=== PATIENT | male | born 1945 | race Caucasian/White ===

== ENCOUNTER 2018-05-31 05:43 | Observation (INO) | payer MEDICARE, OTHER ==
--- NOTE | 2018-05-17 07:47 | HP ---
CC: Ana Phillip MD; Sae Mcqueen MD * ADMITTING HISTORY AND PHYSICAL: DATE OF ADMISSION: 05/31/18 ADMITTING DIAGNOSES: 1. Benign prostatic hypertrophy. 2. Patrial urinary retention. 3. Bladder calculi. PLANNED PROCEDURE: Transurethral resection of prostate and fragmentation and removal of bladder calculi. SURGEON: Zach Vinson MD. HISTORY OF PRESENT ILLNESS: Robel Padilla is a 72-year-old gentleman with a longstanding history of problems related to prostate enlargement. He has been on medical therapy for BPH in the form of Flomax, as well as Proscar, but in spite of that, has been noted to be in partial urinary retention with residuals of up to 300 cc and has had recurrent urinary tract infections. PAST MEDICAL HISTORY: Significant for: 1. Diabetes mellitus. 2. Remote history of coronary artery disease. 3. Hypertension. PAST SURGICAL HISTORY: Significant for: 1. 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 2. Right inguinal hernia repair. 3. Finger surgery. MEDICATIONS: On admission include: 1. Lisinopril 2.5 mg daily. 2. Victoza 1.8 mg daily. 3. Metoprolol 25 mg twice a day. 4. Pantoprazole 40 mg daily. 5. Finasteride 5 mg daily. 6. Crestor 20 mg daily. 7. Aspirin 81 mg. 8. Glipizide 10 mg twice a day. 9. Flomax 0.4 mg daily. 10. Metformin 500 mg twice a day. ALLERGIES: No known drug allergies. SOCIAL HISTORY: He is a nonsmoker. REVIEW OF SYSTEMS: He is quite active physically. He denies any chest pain or shortness of breath. PHYSICAL EXAMINATION GENERAL: Reveals a pleasant healthy-appearing gentleman. VITAL SIGNS: Blood pressure is 112/72, pulse 56 per minute and regular, temperature 96.7, oxygen saturation 97% on room air. LUNGS: Clear bilaterally. CARDIOVASCULAR: Regular rate and rhythm. S1, S2. ABDOMEN: Soft without masses. As mentioned above, he is status post a left below- knee amputation with a prosthesis in place. IMPRESSION AND PLAN: A 72-year-old gentleman with partial urinary retention and recurrent urinary tract infections, who has an enlarged prostrate and multiple bladder calculi. Planned procedure is transurethral resection of prostate and fragmentation and removal of bladder calculi. [id number]/[facility] #: [id number] [facility] PARTNERSMar[facility]
[~2018-05-31 05:43] MED LIST: Buffered Lidocaine 0.9% SYRIN* 5 ML/SYR SYRINGE INTRADERM ONE; Lactated Ringers 1000 ML Bag* 1,000 ML IV SCH
[2018-05-31] MEDS ORDERED: cefTRIAXone(*) 2 GM ADDV.VIAL IVPB ONE (06:19)
[2018-05-31] MEDS ORDERED: fentaNYL* 50 MCG/ML 2 ML VIAL (100 MCG VIAL) ONE (07:33)
[2018-05-31] MEDS ORDERED: Midazolam* 1 MG/ML 2 ML VIAL (2 MG) ONE (07:33)
[2018-05-31] MEDS ORDERED: Succinylcholine* 20 MG/ML 10 ML VIAL ONE (07:37)
[2018-05-31] MEDS ORDERED: Lidocaine 1% INJ* 10 MG/ML 30 ML SDV ONE (07:48)
[2018-05-31] MEDS ORDERED: Propofol* 10 MG/ML 20 ML BTL ONE (08:01)
[2018-05-31] MEDS ORDERED: Bupivacaine-MPF SPINAL* 7.5 MG/ML - 2ML AMP ONE (08:01)
[2018-05-31] MEDS ORDERED: Bupivacaine 0.25% W/EPI* 10 ML SDV ONE (08:01)
[2018-05-31] MEDS ORDERED: HYDROmorphone INJ1* 1 MG/ML SYRINGE IV PRN (08:35)
[2018-05-31] MEDS ORDERED: oxyCODONE/Acetamin 5/325 MG* TAB PO PRN (08:35)
[2018-05-31] MEDS ORDERED: Naloxone* 0.4 MG/ML 1 ML VIAL IV PRN (08:35)
[2018-05-31] MEDS ORDERED: Gentamicin ADULT (*) 160 MG in NS 0.9% 100 ML* 100 ML IVPB ONE (09:00)
[2018-05-31] MEDS ORDERED: Furosemide IV* 10 MG/ML 2 ML VIAL (20 MG) ONE (09:22)
[2018-05-31] MEDS ORDERED: Acetaminophen TAB* 325 MG PO PRN (09:38)
[2018-05-31] MEDS ORDERED: Dextrose 50% Syringe 50 ML* 25 GM/50 ML SYRINGE IV PUSH PRN (11:00)
[2018-05-31] MEDS: Lactated Ringers 1000 ML Bag* 1,000 ML IV SCH ×3 (11:00→23:48)
[2018-05-31] MEDS: Insulin LISPRO* 1 UNITS UNIT SUBCUT SCH ×3 (11:44→20:52)
[2018-05-31 11:47] LABS: BUN/Creatinine Ratio 13.1 (8-20); Calcium 9.2 mg/dL (8.6-10.3); EGFR Non-African American 74.3 (>60); Potassium 4.5 mmol/L (3.5-5.0)
--- NOTE | 2018-05-31 16:18 | OP ---
CC: Dr. Ana Phillip * DATE OF OPERATION: 05/31/18 - ROOM #350 DATE OF : 45 SURGEON: Zach Vinson M.D. ANESTHESIOLOGIST: Dr. White. ANESTHESIA: Spinal. PRE-OP DIAGNOSES: 1. Benign prostatic hypertrophy. 2. Partial urinary retention. 3. Bladder calculi. POST-OP DIAGNOSES: 1. Benign prostatic hypertrophy. 2. Partial urinary retention. 3. Bladder calculi. OPERATIVE PROCEDURE: 1. Transurethral resection of prostate. 2. Fragmentation and removal of bladder calculi. COMPLICATIONS: None. BLOOD LOSS: Approximately 100 cc. CATHETER: 24-Scottish, 30 cc Manley. POSTOPERATIVE CONDITION: Stable. INDICATIONS: Robel Padilla is a 72-year-old gentleman with a longstanding history of symptoms related to BPH, leading to partial urinary retention and recurrent infection in spite of being on maximal medical therapy. DESCRIPTION OF PROCEDURE: After induction of spinal anesthesia, the patient was placed in dorsal lithotomy position. He is status post left below-knee amputation, so only a right sequential compression device was used. Initial evaluation revealed a moderately enlarged obstructing vascular prostate and multiple small bladder calculi. The calculi were easily fragmented and irrigated out and did not require any laser procedure. Next, attention was directed to the prostate. A resectoscope was introduced and transurethral resection of the prostate was carried out from the bladder neck down to the veru. The floor of the prostate was resected, followed by the lateral lobe and then the anterior tissue. At no point was the resection carried distal to the veru in an effort to avoid any potential injury to the sphincter. The resected tissue was removed from the bladder using the Ge evacuator. Hemostasis appeared satisfactory at the end of the procedure. A 24- Scottish Manley catheter was introduced without difficulty and connected to a drainage bag. The patient tolerated the procedure satisfactorily and was transferred back to the recovery area in stable condition. [id number]/[facility] #: [id number] [facility]
[2018-05-31] MEDS ORDERED: Cholecalciferol TAB* 1000 UNITS PO SCH (18:00)
[2018-05-31] MEDS ORDERED: Atorvastatin* 40 MG TAB PO SCH (18:00)
[2018-05-31] MEDS: metFORMIN* 1,000 MG TAB PO SCH (20:40)
[2018-05-31] MEDS: glipiZIDE TAB* 5 MG PO SCH (20:41)
[2018-05-31] MEDS: Metoprolol Tartrate TAB* 25 MG PO SCH (20:41)
[2018-05-31] MEDS ORDERED: Pyridoxine TAB* 50 MG PO SCH (21:00)
[2018-06-01] MEDS: Lactated Ringers 1000 ML Bag* 1,000 ML IV SCH (06:36)
[2018-06-01] MEDS ORDERED: cefTRIAXone(*) 2 GM in NS 0.9% 100 ML* 100 ML IVPB ONE (08:00)
[2018-06-01 08:32] VITALS: BP 113/63
[2018-06-01] MEDS: Insulin LISPRO* 1 UNITS UNIT SUBCUT SCH (08:34)
[2018-06-01] MEDS: metFORMIN* 1,000 MG TAB PO SCH (08:39)
[2018-06-01] MEDS: glipiZIDE TAB* 5 MG PO SCH (08:39)
[2018-06-01] MEDS: Metoprolol Tartrate TAB* 25 MG PO SCH (08:39)
[2018-06-01] MEDS ORDERED: Omeprazole CAP* 20 MG PO SCH (09:00)
[2018-06-01] MEDS ORDERED: Liraglutide (NF) 18 MG/3 ML SUBCUT SCH (09:00)
[2018-06-01] MEDS ORDERED: Multivitamins/Minerals TAB PO SCH (09:00)
--- NOTE | 2018-06-02 04:07 | DS ---
DISCHARGE SUMMARY: DATE OF ADMISSION: 05/31/18 DATE OF DISCHARGE: 06/01/18 ADMITTING DIAGNOSES: 1. BPH. 2. Partial urinary retention. SURGICAL PROCEDURE DONE DURING THIS ADMISSION: Transurethral resection of prostate and fragmentation and removal of bladder calculi on 05/31/18. ADMITTING HISTORY AND HOSPITAL COURSE: Robel Padilla is a 72-year-old gentleman with longstanding history of voiding dysfunction secondary to prostate enlargement. For details, please see admitting history and physical. On 05/31/18, Mr. Padilla underwent transurethral resection of the prostate and removal of bladder calculi under spinal anesthesia. Surgery was smooth and uneventful. He was monitored overnight and was evaluated on 06/01/18 a.m. The Manley catheter was draining reasonably clear urine with good output and he was discharged home with the Manley in place for a followup as per outpatient protocol. [id number]/[facility] #: [id number] MTDD
== END 2018-06-01 10:05 | disposition home or self-care (01) ==
LOC: OR 05:43 → SSU 09:38
PROVIDERS: ADMIT Urology; ATTEND Urology
DX: N40.0 Benign prostatic hyperplasia without lower urinary tract symptoms (principal); R33.9 Retention of urine, unspecified; K80.50 Calculus of bile duct without cholangitis or cholecystitis without obstruction; E11.9 Type 2 diabetes mellitus without complications; I25.10 Atherosclerotic heart disease of native coronary artery without angina pectoris; I10 Essential (primary) hypertension; Z89.512 Acquired absence of left leg below knee; Z79.82 Long term (current) use of aspirin
CPT/HCPCS: 36415; 80048; 88305; 96365; 96366; 96375; A9270-GY; G0378; J0330; J0696; J1580; J1940; J2250; J2704; J3010

== ENCOUNTER 2018-12-25 06:37 | Day surgery (SDC) | payer MEDICARE ==
[~2018-12-25 06:37] MED LIST changes: +Acetaminophen TAB* 325 MG PO PRN; -Buffered Lidocaine 0.9% SYRIN* 5 ML/SYR SYRINGE INTRADERM ONE; -Lactated Ringers 1000 ML Bag* 1,000 ML IV SCH
[2018-12-25] MEDS ORDERED: Metoprolol Tartrate TAB* 25 MG ONE (08:07)
[2018-12-25] MEDS ORDERED: Midazolam* 1 MG/ML 2 ML VIAL (2 MG) ONE (08:10)
[2018-12-25] MEDS ORDERED: Lidocaine 1% MPF ** 5 ML VIAL ONE (09:01)
[2018-12-25] MEDS ORDERED: Ketorolac 0.5% OPHTH (NF) 0.5 % 5 ML BTL ONE (09:01)
[2018-12-25] MEDS ORDERED: Neomycin/Polymy/Dex OPHTH.OIN* 3.5 GM ONE (09:01)
[2018-12-25] MEDS ORDERED: acetaZOLAMIDE TAB* 250 MG ONE (09:01)
[2018-12-25] MEDS ORDERED: Cyclopentolate 1% OPTH.SOL* 2 ML BTL ONE (09:01)
[2018-12-25] MEDS ORDERED: Phenylephrine OPHTH SOL 2.5%* 2 ML ONE (09:01)
[2018-12-25] MEDS ORDERED: Povidone Iodine 5% OPTH* 30 ML BTL ONE (09:01)
[2018-12-25] MEDS ORDERED: Tetracaine 0.5% OPTH.SOL 4 ML* 1 DROP BTL ONE (09:01)
[2018-12-25] MEDS ORDERED: Tropicamide 1% OPTH.SOL* BTL ONE (09:01)
--- NOTE | 2018-12-25 09:48 | OP ---
OPERATIVE REPORT: DATE OF OPERATION: 12/25/18 DATE OF : 45 SURGEON: Louis Pham MD ANESTHESIA: Monitored anesthesia care. PRE-OP DIAGNOSIS: Cataract, right eye. POST-OP DIAGNOSIS: Cataract, right eye, with floppy iris syndrome. OPERATIVE PROCEDURE: Extracapsular cataract extraction of the right eye with intraocular lens implan t. IMPLANTS: SN60WF 22.0 diopter lens to the right eye. COMPLICATIONS: None. DESCRIPTION OF PROCEDURE: The patient was given phenylephrine 2.5% and cyclopentolate 1% eye drops t o the operative eye in the preoperative area. The patient was taken to the operating room where a ti me-out was taken to identify the correct patient, site, and side of surgery. The patient's right eye was prepped and draped in the usual sterile fashion with 5% Betadine. A second time-out was taken t o verify the correct patient, side, and site of surgery, and correct lens implant. A lid speculum wa s placed to the right eye. A 1 mm paracentesis blade was used to make a clear corneal incision in th e superotemporal position. Preservative-free 1% lidocaine was injected into the anterior chamber. Di sCoVisc was then injected into the anterior chamber. A 2.75 mm keratome blade was used to make a tri planar incision at the inferotemporal position. A Malyugin ring was then inserted due to poor pupil dilation and signs of floppy iris syndrome. A cystotome initiated a capsulorrhexis, which was comple luis with Utrata forceps in continuous and curvilinear manner. Hydrodissection of the lens was perfor med with BSS on a cannula. The lens could be spun in a capsular bag. The phacoemulsification handpi aundrea was used with a vizsrhi-yex-nxcbntg technique to remove the nucleus. The I/A handpiece then yu viky the residual cortical lens material. DisCoVisc was then injected to inflate the capsular bag. T he planned SN60WF 22.0 diopter lens was then injected into the capsular bag. The Malyugin ring was t hen removed from the anterior chamber. The residual DisCoVisc was removed from the eye with the I/A handpiece. The corneal incisions were hydrated and no leaks occurred at physiologic pressure around 20 mmHg per palpation. The lid speculum was removed and drapes removed. Maxitrol ointment was place d to the surface of the operative eye. An adhesive patch and shield was then placed on the operative eye. The patient was taken to the postoperative area in stable condition. [id number]/[facility] #: [id number]
[2018-12-25 09:53] VITALS: BP 112/60
== END 2018-12-25 09:05 | disposition home or self-care (01) ==
LOC: OREAST 06:37
PROVIDERS: ATTEND Student in an Organized Health Care Education/Training Program
DX: H25.11 Age-related nuclear cataract, right eye (principal); H21.81 Floppy iris syndrome; E11.9 Type 2 diabetes mellitus without complications; Z79.84 Long term (current) use of oral hypoglycemic drugs; E78.00 Pure hypercholesterolemia, unspecified; K21.9 Gastro-esophageal reflux disease without esophagitis; M19.90 Unspecified osteoarthritis, unspecified site; I10 Essential (primary) hypertension
CPT/HCPCS: A9270-GY; J2250; V2632

== ENCOUNTER 2019-01-01 07:02 | Day surgery (SDC) | payer MEDICARE ==
[2019-01-01] MEDS ORDERED: Midazolam* 1 MG/ML 5 ML VIAL (5 MG) ONE (08:15)
[2019-01-01] MEDS ORDERED: Tropicamide 1% OPTH.SOL* BTL ONE (09:13)
[2019-01-01] MEDS ORDERED: Povidone Iodine 5% OPTH* 30 ML BTL ONE (09:13)
[2019-01-01] MEDS ORDERED: Ketorolac 0.5% OPHTH (NF) 0.5 % 5 ML BTL ONE (09:13)
[2019-01-01] MEDS ORDERED: Lidocaine 1% MPF ** 5 ML VIAL ONE (09:13)
[2019-01-01] MEDS ORDERED: Neomycin/Polymy/Dex OPHTH.OIN* 3.5 GM ONE (09:13)
[2019-01-01] MEDS ORDERED: acetaZOLAMIDE TAB* 250 MG ONE (09:13)
[2019-01-01] MEDS ORDERED: Tetracaine 0.5% OPTH.SOL 4 ML* 1 DROP BTL ONE (09:13)
[2019-01-01] MEDS ORDERED: Cyclopentolate 1% OPTH.SOL* 2 ML BTL ONE (09:13)
[2019-01-01] MEDS ORDERED: Phenylephrine OPHTH SOL 2.5%* 2 ML ONE (09:13)
[2019-01-01 09:43] VITALS: BP 109/62
--- NOTE | 2019-01-01 11:04 | OP ---
DATE OF OPERATION: 01/01/19 - [facility] DATE OF : 45 SURGEON: Lousi Pham MD. ANESTHESIA: Monitored anesthesia care. PREOPERATIVE DIAGNOSIS: Cataract, left eye. POSTOPERATIVE DIAGNOSIS: Cataract, left eye, with floppy iris syndrome. OPERATIVE PROCEDURE: Extracapsular cataract extraction of the left eye with intraocular lens implant. IMPLANTS: SN60WF 21.5 diopter lens to the left eye. COMPLICATIONS: None. DESCRIPTION OF PROCEDURE: The patient was given phenylephrine 2.5% and cyclopentolate 1% eye drops to the operative eye in the preoperative area. The patient was taken to the operating room where a time-out was taken to identify the correct patient, site, and side of surgery. The patient's left eye was prepped and draped in usual sterile fashion with 5% Betadine. A second time- out was taken to verify the correct patient, side and site of surgery, and correct lens implant. A lid speculum was placed to the left eye. A 1-mm paracentesis blade was used to make a clear corneal incision in the inferotemporal position. Preservative-free 1% lidocaine was injected into the anterior chamber. DisCoVisc was then injected into the anterior chamber. A 2.75 mm keratome blade was used to make a triplanar incision at the superotemporal position. A Malyugin ring was then inserted due to poor pupil dilation and evidence of floppy iris syndrome. A cystotome was initiated a capsulorrhexis, which was completed with Utrata forceps in a continuous and curvilinear manner. Hydrodissection of the lens was performed with BSS on a cannula. The lens could be spun in the capsular bag. The phacoemulsification handpiece was used with a vmhwap-wvv-ixdceyk technique to remove the nucleus. The IA handpiece then removed the residual cortical lens material. DisCoVisc was injected to inflate the capsular bag. The planned SN60WF 21.5 diopter lens was then injected in the capsular bag. The Malyugin ring was then removed from the anterior chamber. The residual DisCoVisc was removed from the eye with the IA handpiece. The corneal incisions were hydrated and no leaks occurred at physiologic pressure around 20 mmHg per palpation. The lid speculum was removed and drapes removed. Maxitrol ointment was placed to the surface of the operative eye. An adhesive patch and shield was then placed on the operative eye. The patient was taken to the post-operative area in stable condition. [id number]/[facility] #: [id number] JEFFREY
== END 2019-01-01 09:32 | disposition home or self-care (01) ==
LOC: OREAST 07:02
PROVIDERS: ATTEND Student in an Organized Health Care Education/Training Program
DX: H25.12 Age-related nuclear cataract, left eye (principal); H21.81 Floppy iris syndrome; E11.9 Type 2 diabetes mellitus without complications; Z79.84 Long term (current) use of oral hypoglycemic drugs; I10 Essential (primary) hypertension; K21.9 Gastro-esophageal reflux disease without esophagitis; M19.90 Unspecified osteoarthritis, unspecified site; E78.00 Pure hypercholesterolemia, unspecified; I25.10 Atherosclerotic heart disease of native coronary artery without angina pectoris
CPT/HCPCS: A9270-GY; J2250; V2632

== ENCOUNTER 2019-06-03 07:47 | Inpatient (IN) | payer MEDICARE ==
--- OUTSIDE RECORDS SUMMARY | 2019-06-03 07:56 | XMS REPORT | Continuity of Care Document ---
:1945 External Reference #:[id number] Author Name Concepcion Collier RN MS FNP Address [address] [place] [address] Care Team Providers Name Role Phone Leo Montesinos MD - Urology Care Team Information Sighter [phone] Jacky Albarado MD Care Team Information Sighter [phone] Problems Active Problems Provider Date Type 2 diabetes mellitus Ana Phillip MD Onset: 04/27/2005 Benign essential hypertension Ana Phillip MD Onset: 06/29/2005 Coronary arteriosclerosis Ana Phillip MD Onset: 06/29/2005 Pure hypercholesterolemia Ana Phillip MD Onset: 05/31/2006 Peptic reflux disease Onset: 09/05/2006 Type II diabetes mellitus uncontrolled Ana Phillip MD Onset: 2012 Essential hypertension Ana Phillip MD Onset: 04/01/2017 Mixed hyperlipidemia Ana Phillip MD Onset: 07/04/2017 Social History Type Date Description Comments Sex Unknown Tobacco Use Start: Unknown Never Smoked Cigarettes Tobacco Use Start: Unknown Patient has never smoked Smoking Status Reviewed: 06/01/19 Patient has never smoked Allergies, Adverse Reactions, Alerts Description No Known Drug Allergies Medications Active Medications SIG Qnty Indications Ordering Date Provider Amoxicillin/Clavulana one tab twice a 14tabs L03.114 Concepcion Collier 06/01 te Potassium day x 7 days 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 875-125mg Tablets Jardiance 1 by mouth every 30tabs E11.65 Ana Phillip 04/10/2019 25mg Tablets day MD Mona Metformin HCL Take 2 Tablets 360tabs E11.65 Mele Cain PA 03/10/2018 500mg By Mouth Two Tablets Times Daily With Meals Carpal Tunnel Wrist LEFT 1units G56.02 [facility] 10/10/2017 Stabilizer/Large/X-La MD Mona rge Misc Vitamin D 1 by mouth every 90tabs E55.9 [facility] 07/04/2017 1000Unit day MD Mona Tablets Rosuvastatin Calcium Take 1 Tablet By 90tabs E78.2 [facility] 2016 Mouth Every Day MD Mona 20mg Tablets Acarbose Take 1 Tablet By 270tabs E11.65 [facility] 04/01/2017 50mg Tablets Mouth Three M, Times Daily Glipizide take 1 tablet by 180tabs E11.65 [facility] 04/01/2017 10mg Tablets mouth twice M, daily Metoprolol Tartrate Take 1 Tablet By 180tabs I25.10 [facility] 04/01 Mouth Two Times MD Mona 25mg Tablets Daily Glucosamine [facility] 04/01/2017 Chondroitin Complex MD Mona Advanced Plus MSM Tablets Cinnamon E11.65 [facility] 04/01/2017 500mg Tablets MD Mona Aspirin 1 po qd 90tabs I25.10 [facility] 10/12/[address] Mona MD BD Pen Needle Short Use Up To Three 100units E11.65 [facility] 09/11 31GX5/16" (8mm) Times A Day MD Mona Pantoprazole Sodium Take 1 Tablet By 90tabs K21.0 [facility] 2011 Mouth Every Day MD Mona 40mg Tablets DR Pacheco Inject 1.8 MG 27units E11.65 [facility] 11/02/2011 18mg/3ML Under The Skin MD Mona Solution Pen-Inject Every Day as Directed Lisinopril Take 1 Tablet By 90tabs I10 [facility] 05/10/2011 2.5mg Mouth Every Day MD Mona Tablets Diabetic Test Strips and prn symptoms QS E11.65 [facility] 2010 For bid Glucose of MD Mona Testing hypo/hyperglycem ia [place]-3 2 po bid 120caps E78.2 [facility] 12/09/2008 1000mg Capsules MD Mona epa/d[facility] MD Mona Tablets Immunizations CPT Code Status Date Vaccine Lot # [id number] Given 04/03/2019 Influenza Vac, Quadrivalent, Split, 0.5mL [id number] Dosage, Im Use 85517 Given 03/10/2018 Influenza Vac, Quadrivalent, Split, 0.5mL [id number] Dosage, [place] Use 19742 Given 12/26/2017 Shingrix (Shingles) Zoster Vaccine HZV, Recombinant, Subunit, Adj 07029 Given 10/11/2017 Shingrix (Shingles) Zoster Vaccine HZV, Recombinant, Subunit, Adj 75234 Given 02/23/2017 Influenza Vac, Quadrivalent, Split, 0.5mL Dosage, Im Use 05610 Given 02/08/2017 Influenza Vac, Quadrivalent, Split, 0.5mL Dosage, Im Use 49187 Given 11/15/2014 Prevnar 13 Pneumococal Conjugate Vaccine [id number] Q2038 Given 03/19/2014 Fluzone Trivalent Immunization [id number] Q2038 Given 05/07/2013 Fluzone Trivalent Immunization [id number] Q2038 Given 03/06/2012 Fluzone Trivalent Immunization [id number] 28360 Given 02/08/2012 Tdap (Adacel) Ages 7 And Above Only [id number] Q2038 Given 03/25/2011 Fluzone Trivalent Immunization [id number] 59713 Given 01/05/2011 Pneumococcal 23 Immunization Adult Or [id number] Immunosuppressed Patient 89552 Given 03/23/2010 Afluria Or Fluvirin Flu Vac Intramuscular [id number] 55974 Given 06/24/2009 Influenza Virus Vaccine Pandemic [id number] Formulation - [id number] 03091 Given 06/24/2009 Administration Swine Flu Vaccine [id number] 42859 Given 03/10/2009 Afluria Or Fluvirin Flu Vac Intramuscular [id number] 02226 Given 05/20/2008 Afluria Or Fluvirin Flu Vac Intramuscular [id number] 20666 Given 04/10/2007 Afluria Or Fluvirin Flu Vac Intramuscular [id number] 54593 Given 12/05/2006 Zoster (Zostavax) [id number] 61324 Given 05/31/2006 Afluria Or Fluvirin Flu Vac Intramuscular [id number] 39118 Given 04/27/2005 Afluria Or Fluvirin Flu Vac Intramuscular [id number]-7/ 30/06 70347 Given 06/30/2004 Afluria Or Fluvirin Flu Vac Intramuscular 52580 Given 03/29/2002 Immunization Td 7 Yrs Or Older 37385 Given 03/29/2002 Afluria Or Fluvirin Flu Vac Intramuscular 75497 Given 07/04/2000 Pneumococcal 23 Immunization Adult Or Immunosuppressed Patient Vital Signs Date Vital Result Comment 06/01/2019 10:07am Weight 199.25 lb Heart Rate 112 /min BP Systolic 144 mmHg BP Diastolic 82 mmHg 04/10/2019 7:55am Weight 207.00 lb Heart Rate 72 /min BP Systolic 104 mmHg BP Diastolic 60 mmHg Results Test Acquired Date Facility Test Result H/L Range Note Laboratory test 05/24/2019 [facility] PSA Diagnostic 0.721 Normal 0-4.0 1 finding ng/mL Basic (BMP) 04/03/2019 [facility] Sodium 140 mmol/L 135-146 2, 3 Potassium 4.6 mmol/L 3.5-5.2 Chloride# 103 mmol/L 97-110 4 Carbon Dioxide 27 mmol/L 24-34 Glucose 131 mg/dL High 70-105 BUN 18 mg/dL 6-26 Creatinine 1.2 mg/dL 0.5-1.4 Calcium 9.7 mg/dL 8.5-10.5 5 Female Egfr 46 Low >60 6 Male Egfr 61 >60 7 Anion Gap 10 mmol/L 5-15 8 Hemoglobin A1c 04/03/2019 [facility] Hemoglobin A1c 7.6 % High 4.1-5.9 Estimated Average Glucose Calc 171 mg/dL High 71-140 Lipid Treatment 04/03/2019 [facility] Cholesterol 109 mg/dL 50-199 Triglycerides 163 mg/dL 30-200 HDL 38 mg/dL 29-71 9 Chol/ HDL Ratio 2.8 ratio Low 4.0-6.7 VLDL 33 mg/dL High 2-29 LDL (Calc) 38 mg/dL 20-99 10 Alt 16 U/L 3-42 Ast 18 U/L 8-42 Laboratory test finding 04/03/2019 [facility] Vitamin D 25 Hydroxy 53 ng/mL 30-100 11 1 Serum levels of PSA measured using the [employer] [place] DXI Hybritech immunoassay should not be interpreted as absolute evidence of the presence or absence of disease. The PSA value should be used in conjunction with other pertinent clinical diagnostic procedures. The values obtained with different assay methods or kits cannot be used interchangeably. 2 This sample is drawn by:[facility]. 3 Updated reference range on new analyzer 4 Updated reference range on new analyzer 5 Updated reference range 10-11-2018 6 Concerning GFR Guidelines for Americans: Normal function or mild renal disease, if clinically at risk: >/= 60 mL/min Moderately decreased: 30-59 Severely decreased: 15-29 Renal failure: <15 There is reduced accuracy above 60ml/min/1.73 m squared, but the numeric value may be clinically useful in the near 60 range 7 Concerning GFR Guidelines: Normal function or mild renal disease, if clinically at risk: >/= 60 mL/min Moderately decreased: 30-59 Severely decreased: 15-29 Renal failure: <15 There is reduced accuracy above 60ml/min/1.73 m squared, but the numeric value may be clinically useful in the near 60 range Glomerular Filtration Rate (GFR) is estimated based on the CKD-EPI equation, which assumes a steady state for creatinine as recommended by the National Kidney Disease Education Program in conjunction with the National Institutes of Health and the National Kidney Foundation. Clinical conditions in which it may be necessary to measure GFR by using clearance methods include extremes of age and body size, severe malnutrition or obesity, diseases of skeletal muscle, paraplegia or quadriplegia, vegetarian diet, rapidly changing kidney function, and calculation of the dose of potentially toxic drugs that are excreted by the kidneys. 8 Updated Reference Range 9 Per NCEP ATP III Guidelines: Results lower than 40 mg/dL are suggestive of increased risk for coronary artery disease. Results > or = to 60 mg/dL are considered a negative risk factor. 10 Per NCEP ATP III Guidelines: Normal Population <130 Patients with medical conditions: CHD/DM Optimal: <100 Borderline high: 130-159 High: 160-189 Very high: >189 11 Clinical Guidelines for recommended serum 25(OH)Vitamin D Deficient at less than 20 ng/mL Insufficient at 20 to <30 ng/mL Sufficient at 30-100 ng/mL Toxicity at greater than 100 ng/mL Procedures Date Code Description Status 11/03/2017 35000373 Colonoscopy Completed 10/15/2014 [id number] Colonoscopy Completed 08/19/2004 [id number] Colonoscopy Completed Medical Devices Description No Information Available Encounters Type Date Location Provider Dx Diagnosis Office Visit 04/10/2019 Ana Dale E11.65 Type 2 diabetes 8:00a MD Mona mellitus with hyperglycemia E78.2 Mixed hyperlipidemia I10 Essential (primary) hypertension I25.10 [facility] heart disease of tel[place] coronary artery w/o ang pctrs N40.0 Benign prostatic hyperplasia without lower urinry tract symp G56.02 Carpal tunnel syndrome, LEFT upper limb Office Visit 12/18/2018 3:00p Ana Dale Z01.818 Encounter for juan francisco Dunn MD preprocedural examination Z68.27 Body mass index (BMI) 27.0-27.9, adult Office Visit 12/04/2018 9:45a Ana Dale E11.65 Type 2 diabetes MD Mona mellitus with hyperglycemia E78.2 Mixed hyperlipidemia I10 Essential (primary) hypertension I25.10 Athscl heart disease of tel[place] coronary artery w/o ang pctrs N40.0 Benign prostatic hyperplasia without lower urinry tract symp Z68.28 Body mass index (BMI) 28.0-28.9, adult Assessments Date Code Description Provider 06/01/2019 L03.114 Cellulitis of LEFT upper limb Concepcion Collier, RN MS [employer] SOFTWARE [employer]INE[employer] 06/01/2019 E11.65 Type 2 diabetes mellitus with Concepcion Collier RN MS [facility] hyperglycemia 04/10/2019 E11.65 Type 2 diabetes mellitus with Ana Phillip MD hyperglycemia 04/10/2019 E78.2 Mixed hyperlipidemia Ana Phillip MD 04/10/2019 I10 Essential (primary) hypertension Ana Phillip MD 04/10/2019 I25.10 Atherosclerotic heart disease of Ana Phillip MD tel[place] coronary artery with 04/10/2019 N40.0 Benign prostatic hyperplasia without Ana Phillip MD lower urinary tract sym 04/10/2019 G56.02 Carpal tunnel syndrome, LEFT upper Ana Phillip MD limb 04/03/2019 Z79.84 residential (current) use of oral [facility] hypoglycemic drugs 04/03/2019 E11.65 Type 2 diabetes mellitus with Ana Phillip MD hyperglycemia 04/03/2019 E11.65 Type 2 diabetes mellitus with [facility] hyperglycemia 04/03/2019 E11.65 Type 2 diabetes mellitus with Nurses [facility] hyperglycemia 04/03/2019 Z23 Encounter for immunization Ana Phillip MD 12/18/2018 Z01.818 Encounter for other preprocedural Ana Phillip MD examination 12/18/2018 Z68.27 Body mass index (BMI) 27.0-27.9, Ana Phillip MD adult 12/04/2018 E11.65 Type 2 diabetes mellitus with Ana Phillip MD hyperglycemia 12/04/2018 E78.2 Mixed hyperlipidemia Ana Phillip MD 12/04/2018 I10 Essential (primary) hypertension Ana Phillip MD 12/04/2018 I25.10 Atherosclerotic heart disease of Ana Phillip MD [place] coronary artery with 12/04/2018 N40.0 Benign prostatic hyperplasia without Ana Phillip MD lower urinary tract sym 12/04/2018 Z68.28 Body mass index (BMI) 28.0-28.9, Ana Phillip MD adult Plan of Treatment Future Appointment(s):06/04/2019 11:30 am - Ana Phillip MD at [id number] 8:30 am - Nurses Schedule Claude at [facility]/15/2019 9:00 am - Ana Phillip MD at [facility]/01/2019 - Concepcion Collier RN MS FNPL03.114 Cellulitis of LEFT upper limbNew Medication:Amoxicillin/Clavulanate Potassium 875-125 mg - one tab twice a day x 7 daysMiscellaneous:ADVISED TO USE ANTIBACTERIAL SOAP AND GENTLY WASH DAILY , RINCE AND PAT DRY, MAY USE SOME ANTIBIOTICOINTMENT OVER THE RED AREA AND MUST KEEP ELEVATED OVER HIS HEAD MUST GO TO ER FOR ANY WORSEING OF REDNESS OR IF FEELING WORSE ( FEVER CHILLS WORSE) MAY TAKE TYLENOL FOR FEVER OR PAINE11.65 Type 2 diabetes mellitus with hyperglycemia Functional Status Description No Information Available Mental Status Description No Information Available Referrals Description No Information Available
--- OUTSIDE RECORDS SUMMARY | 2019-06-03 07:56 | XMS REPORT | Continuity of Care Document ---
:1945 External Reference #:[id number] Author Name Ana Phillip MD Address [address] [place] [address] Care Team Providers Name Role Phone Leo Montesinos MD - Urology Care Team Information Asbestos Pipe Supervisor [phone] Sae Mcqueen MD Care Team Information Asbestos Pipe Supervisor [phone] Problems Active Problems Provider Date Type 2 diabetes mellitus Ana Phillip MD Onset: 04/27/2005 Benign essential hypertension Ana Phillip MD Onset: 06/29/2005 Coronary arteriosclerosis Ana Phillip MD Onset: 06/29/2005 Pure hypercholesterolemia Ana Phillip MD Onset: 05/31/2006 Peptic reflux disease Onset: 09/05/2006 Type II diabetes mellitus uncontrolled Ana Phillip MD Onset: 2012 Mixed hyperlipidemia Ana Phillip MD Onset: 07/04/2017 Essential hypertension Ana Phillip MD Onset: 04/01/2017 Social History Type Date Description Comments Sex Unknown Tobacco Use Start: Unknown Never Smoked Cigarettes Tobacco Use Start: Unknown Patient has never smoked Smoking Status Reviewed: 04/10/19 Patient has never smoked Allergies, Adverse Reactions, Alerts Description No Known Drug Allergies Medications Active Medications SIG Qnty Indications Ordering Date Provider Jardiance 1 by mouth every 30tabs E11.65 Ana Phillip 04/10/2019 25mg Tablets day MD Mona Metformin HCL Take 2 Tablets 360tabs E11.65 Mele Cain PA 03/10/2018 500mg By Mouth Two Tablets Times Daily With Meals Carpal Tunnel Wrist LEFT 1units G56.02 Ana Phillip 10/10/2017 Stabilizer/Large/Jack Dunn MD rge Misc Vitamin D 1 by mouth every 90tabs E55.9 [facility] 07/04/2017 1000Unit day MD Mona Tablets Rosuvastatin Calcium Take 1 Tablet By 90tabs E78.2 [facility] 2016 Mouth Every Day MD Mona 20mg Tablets Acarbose Take 1 Tablet By 270tabs E11.65 [facility] 04/01/2017 50mg Tablets Mouth Three M, Times Daily Glipizide Take 1 Tablet By 180tabs E11.65 [facility] 04/01/2017 10mg Tablets Mouth Twice M, Daily Metoprolol Tartrate Take 1 Tablet By 180tabs I25.10 [facility] 04/01 Mouth Two Times Mona, 25mg Tablets Daily Glucosamine [facility] 04/01/2017 Chondroitin Complex MD Mona Advanced Plus MSM Tablets Cinnamon E11.65 [facility] 04/01/2017 500mg Tablets MD Mona Aspirin 1 po qd 90tabs I25.10 [facility] 10/12/[address] Mona MD BD Pen Needle Short Use Up To Three 100units E11.65 [facility] 09/11 31GX5/16" (8mm) Times A Day MD Mona Pantoprazole Sodium Take 1 Tablet By 90tabs K21.0 [facility] 2011 Mouth Every Day MD Mona 40mg Tablets DR Pacheco Inject 1.8 MG 27units E11.65 [facility] 11/02/2011 18mg/3ML Under The Skin MD Mona Solution Pen-Inject Every Day as Directed Lisinopril Take 1 Tablet By 90tabs I10 [facility] 05/10/2011 2.5mg Mouth Every Day MD Mona Tablets Diabetic Test Strips and prn symptoms QS E11.65 [facility] 2010 For bid Glucose of MD Mona Testing hypo/hyperglycem ia Carlin-3 2 po bid 120caps E78.2 [facility] 12/09/2008 1000mg Capsules MD Mona epa/dha Vitamins Multiple [facility] 09/29/2004 MD Mona Tablets Immunizations CPT Code Status Date Vaccine Lot # [id number] Given 04/03/2019 Influenza Vac, Quadrivalent, Split, 0.5mL [id number] Dosage, Im Use 78485 Given 03/10/2018 Influenza Vac, Quadrivalent, Split, 0.5mL [id number] Dosage, Im Use 62461 Given 12/26/2017 Shingrix (Shingles) Zoster Vaccine HZV, Recombinant, Subunit, Adj 25155 Given 10/11/2017 Shingrix (Shingles) Zoster Vaccine HZV, Recombinant, Subunit, Adj 99274 Given 02/23/2017 Influenza Vac, Quadrivalent, Split, 0.5mL Dosage, Im Use 23182 Given 02/08/2017 Influenza Vac, Quadrivalent, Split, 0.5mL Dosage, Im Use 38742 Given 11/15/2014 Prevnar 13 Pneumococal Conjugate Vaccine [id number] Q2038 Given 03/19/2014 Fluzone Trivalent Immunization [id number] Q2038 Given 05/07/2013 Fluzone Trivalent Immunization [id number] Q2038 Given 03/06/2012 Fluzone Trivalent Immunization [id number] 00137 Given 02/08/2012 Tdap (Adacel) Ages 7 And Above Only [id number] Q2038 Given 03/25/2011 Fluzone Trivalent Immunization [id number] 30771 Given 01/05/2011 Pneumococcal 23 Immunization Adult [place] [id number] Immunosuppressed Patient 91436 Given 03/23/2010 Afluria Or Fluvirin Flu Vac Intramuscular [id number] 88619 Given 06/24/2009 Influenza Virus Vaccine Pandemic [id number] Formulation - [id number] 55939 Given 06/24/2009 Administration Swine Flu Vaccine [id number] 89566 Given 03/10/2009 Afluria Or Fluvirin Flu Vac Intramuscular [id number] 89523 Given 05/20/2008 Afluria Or Fluvirin Flu Vac Intramuscular [id number] 99547 Given 04/10/2007 Afluria Or Fluvirin Flu Vac Intramuscular [id number] 35009 Given 12/05/2006 Zoster (Zostavax) [id number] 28487 Given 05/31/2006 Afluria Or Fluvirin Flu Vac Intramuscular [id number] 57425 Given 04/27/2005 Afluria Or Fluvirin Flu Vac Intramuscular [id number]/ 30/06 95204 Given 06/30/2004 Afluria Or Fluvirin Flu Vac Intramuscular 31578 Given 03/29/2002 Immunization Td 7 Yrs Or Older 30972 Given 03/29/2002 Afluria Or Fluvirin Flu Vac Intramuscular 40008 Given 07/04/2000 Pneumococcal 23 Immunization Adult Or Immunosuppressed Patient Vital Signs Date Vital Result Comment 04/10/2019 7:55am Weight 207.00 lb Heart Rate 72 /min BP Systolic 104 mmHg BP Diastolic 60 mmHg 12/18/2018 2:57pm Weight 199.00 lb Heart Rate 76 /min BP Systolic 104 mmHg BP Diastolic 58 mmHg Height 71 inches 5'11" BMI (Body Mass Index) 27.8 kg/m2 Results Test Date Facility Test Result H/L Range Note Basic (BMP) 04/03/2019 [facility] Sodium 140 mmol/L 135-146 1, 2 Potassium 4.6 mmol/L 3.5-5.2 Chloride# 103 mmol/L 97-110 3 Carbon Dioxide 27 mmol/L 24-34 Glucose 131 mg/dL High 70-105 BUN 18 mg/dL 6-26 Creatinine 1.2 mg/dL 0.5-1.4 Calcium 9.7 mg/dL 8.5-10.5 4 Female Egfr 46 Low >60 5 Male Egfr 61 >60 6 Anion Gap 10 mmol/L 5-15 7 Hemoglobin A1c 04/03/2019 [facility] Hemoglobin A1c 7.6 % High 4.1-5.9 Estimated Average Glucose Calc 171 mg/dL High 71-140 Lipid Treatment 04/03/2019 [facility] Cholesterol 109 mg/dL 50-199 Triglycerides 163 mg/dL 30-200 HDL 38 mg/dL 29-71 8 Chol/ HDL Ratio 2.8 ratio Low 4.0-6.7 VLDL 33 mg/dL High 2-29 LDL (Calc) 38 mg/dL 20-99 9 Alt 16 U/L 3-42 Ast 18 U/L 8-42 Laboratory test finding 04/03/2019 [facility] Vitamin D 25 53 ng/mL 30-100 10 Hydroxy Basic (BMP) 11/27/2018 [facility] Sodium 141 mmol/L 135-146 11 Potassium 5.4 mmol/L High 3.5-5.2 Chloride# 103 mmol/L 97-110 12 Carbon Dioxide 29 mmol/L 24-34 Glucose 150 mg/dL High 70-105 BUN 20 mg/dL 6-26 Creatinine 1.2 mg/dL 0.5-1.4 Calcium 10.0 mg/dL 8.5-10.5 13 Female Egfr 43 Low >60 14 Male Egfr 57 Low >60 15 Anion Gap 9 mmol/L 5-15 16 Lipid Treatment 11/27/2018 [facility] Cholesterol 147 mg/dL 50-199 Triglycerides 189 mg/dL 30-200 HDL 44 mg/dL 29- 17 Chol/ HDL Ratio 3.3 ratio Low 4.0-6.7 VLDL 38 mg/dL High 2-29 LDL (Calc) 65 mg/dL 20-99 18 Alt 18 U/L 3-42 Ast 20 U/L 8-42 Hemoglobin A1c 11/27/2018 [facility] Hemoglobin A1c 7.4 % High 4.1-5.9 Estimated Average Glucose Calc 166 mg/dL High 71-140 1 This sample is drawn by:[facility]. 2 Updated reference range on new analyzer 3 Updated reference range on new analyzer 4 Updated reference range 10-11-2018 5 Concerning GFR Guidelines for Americans: Normal function or mild renal disease, if clinically at risk: >/= 60 mL/min Moderately decreased: 30-59 Severely decreased: 15-29 Renal failure: <15 There is reduced accuracy above 60ml/min/1.73 m squared, but the numeric value may be clinically useful in the near 60 range 6 Concerning GFR Guidelines: Normal function or mild [...] drugs that are excreted by the kidneys. 7 Updated Reference Range 8 Per NCEP ATP III Guidelines: Results lower than 40 mg/dL are suggestive of increased risk for coronary artery disease. Results > or = to 60 mg/dL are considered a negative risk factor. 9 Per NCEP ATP III Guidelines: Normal Population <130 Patients with medical conditions: CHD/DM Optimal: <100 Borderline high: 130-159 High: 160-189 Very high: >189 10 Clinical Guidelines for recommended serum 25(OH)Vitamin D Deficient at less than 20 ng/mL Insufficient at 20 to <30 ng/mL Sufficient at 30-100 ng/mL Toxicity at greater than 100 ng/mL 11 Updated reference range on new analyzer 12 Updated reference range on new analyzer 13 Updated reference range 10-11-2018 14 Concerning GFR Guidelines for Americans: Normal function or mild renal disease, if clinically at risk: >/= 60 mL/min Moderately decreased: 30-59 Severely decreased: 15-29 Renal failure: <15 There is reduced accuracy above 60ml/min/1.73 m squared, but the numeric value may be clinically useful in the near 60 range 15 Concerning GFR Guidelines: Normal function or mild [...] drugs that are excreted by the kidneys. 16 Updated Reference Range 17 Per NCEP ATP III Guidelines: Results lower than 40 mg/dL are suggestive of increased risk for coronary artery disease. Results > or = to 60 mg/dL are considered a negative risk factor. 18 Per NCEP ATP III Guidelines: Normal Population <130 Patients with medical conditions: CHD/DM Optimal: <100 Borderline high: 130-159 High: 160-189 Very high: >189 Procedures Date Code Description Status 11/03/2017 91732412 Colonoscopy Completed 10/15/2014 13811679 Colonoscopy Completed 08/19/2004 69550447 Colonoscopy Completed Medical Devices Description No Information Available Encounters Type Date Location Provider Dx Diagnosis Office Visit 12/18/2018 Ana Dale Z01.818 Encounter for other 3:00p MD Mona preprocedural examination Z68.27 Body mass index (BMI) 27.0-27.9, adult Office Visit 12/04/2018 9:45a Ana Dale E11.65 Type 2 hussain Dunn MD mellitus with hyperglycemia E78.2 Mixed hyperlipidemia I10 Essential (primary) hypertension I25.10 Athscl heart disease [place] coronary artery w/o ang pctrs N40.0 Benign prostatic hyperplasia without lower urinry tract symp Z68.28 Body mass index (BMI) 28.0-28.9, adult Assessments Date Code Description Provider 04/10/2019 E11.65 Type 2 diabetes mellitus with hyperglycemia Ana Phillip MD 04/10/2019 E78.2 Mixed hyperlipidemia Ana Phillip MD 04/10/2019 I10 Essential (primary) hypertension Ana Phillip MD 04/10/2019 I25.10 Atherosclerotic heart disease of [place] Ana Phillip MD coronary artery with 04/10/2019 N40.0 Benign prostatic hyperplasia without lower Ana Phillip MD urinary tract sym 04/10/2019 G56.02 Carpal tunnel syndrome, LEFT upper limb Ana Phillip MD 04/03/2019 E11.65 Type 2 diabetes mellitus with hyperglycemia Ana Phillip MD 04/03/2019 E11.65 Type 2 diabetes mellitus with hyperglycemia [facility] 04/03/2019 Z23 Encounter for immunization Ana Phillip MD 04/03/2019 E11.65 Type 2 diabetes mellitus with hyperglycemia [facility] 12/18/2018 Z01.818 Encounter for other preprocedural Ana Phillip MD examination 12/18/2018 Z68.27 Body mass index (BMI) 27.0-27.9, adult Ana Phillip MD 12/04/2018 E11.65 Type 2 diabetes mellitus with hyperglycemia Ana Phillip MD 12/04/2018 E78.2 Mixed hyperlipidemia Ana Phillip MD 12/04/2018 I10 Essential (primary) hypertension Ana Phillip MD 12/04/2018 I25.10 Atherosclerotic heart disease [place] Ana Phillip MD coronary artery with 12/04/2018 N40.0 Benign prostatic hyperplasia without lower Ana Phillip MD urinary tract sym 12/04/2018 Z68.28 Body mass index (BMI) 28.0-28.9, adult Ana Phillip MD 11/27/2018 E11.65 Type 2 diabetes mellitus with hyperglycemia Ana Phillip MD 11/27/2018 E11.65 Type 2 diabetes mellitus with hyperglycemia Nurses [facility] 11/27/2018 E11.65 Type 2 diabetes mellitus with hyperglycemia [facility] Plan of Treatment Future Appointment(s):06/15/2019 9:00 am - Ana Phillip MD at [id number] - Ana Phillip MDE11.65 Type 2 diabetes mellitus with hyperglycemiaNew Medication:Jardiance 25 mg - 1 by mouth every dayFollow up:2 mos BWBE78.2 Mixed [id number] Essential (primary) vakpicjuocthV53.10 Atherosclerotic heart disease of [place] coronary artery withN40.0 Benign prostatic hyperplasia without lower urinary tract symG56.02 Carpal tunnel syndrome, LEFT upper limb Functional Status Description No Information Available Mental Status Description No Information Available Referrals Description No Information Available
--- NOTE | 2019-06-03 08:01 | ED ---
Upper Extremity Pain - HPI Summary HPI Summary: 73 year old M arriving via private car with complains of erythema and swelling in his left forearm since 05/25. Had blood work done from left upper extremity on 05/24. Noticed that his left forearm was tender on 05/25. Reports intermittent fever for which he has been taking Tylenol. Was seen by primary care provider on 06/01 and prescribed Augmentin which he has been taking since 06/01. Today 06/03, his symptoms are not worse, not better. Was recommended to go to the ED by his primary care provider if symptoms not improved. No hx cellulitis. Reports intermittent chills. No fever, nausea/vomiting. He states he is able to move his left upper extremity. No pain in his left upper extremity. The patient rates the pain 0/10 in severity. Symptoms aggravated by nothing. Symptoms alleviated by nothing. Medications reviewed. Allergies noted. - History of Current Complaint Chief Complaint: EDExtremityUpper Stated Complaint: INFECTION IN LEFT ARM PER PT Time Seen by Provider: 06/03/19 07:53 Hx Obtained From: Patient Onset/Duration: Started Days Ago - 9, Still Present Timing: Constant Severity Currently: None Pain Location: Forearm - left Aggravating Factor(s): Nothing Alleviating Factor(s): Nothing - Allergies/Home Medications Allergies/Adverse Reactions: Allergies Allergy/AdvReac Type Severity Reaction Status Date / Time No Known Allergies Allergy Verified 12/25/18 07:25 PMH/Surg Hx/FS Hx/Imm Hx Endocrine/Hematology History: Reports: Hx Diabetes - TYPE II- ON ORAL MEDICATION AND VICTOZA Cardiovascular History: Reports: Hx Coronary Artery Disease - HX OF BYPASS-2010 , Hx Hypertension, Other Cardiovascular Problems/Disorders - DR. 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 prostate removed 2018 Hx Anesthesia Reactions: No Infectious Disease History: No Infectious Disease History: Denies: Traveled Outside the [place] in Last 30 Days - Family History Known Family History: Positive: Other - glaucoma - Social History Alcohol Use: None Substance Use Type: Reports: None Hx Tobacco Use: No Smoking Status (MU): Never Smoked Tobacco Have You Smoked in the Last Year: No Review of Systems Positive: Chills. Negative: Fever Negative: Vomiting, Nausea Musculoskeletal: Negative - pain in left upper extremity Positive: Other - swelling in his left forearm Positive: Other - erythema in his left forearm All Other Systems Reviewed And Are Negative: Yes Physical Exam - Summary Physical Exam Summary: Constitutional: Well-developed, Well-nourished, Alert. (-) Distressed Skin: Warm, Dry HENT: Normocephalic; Atraumatic Eyes: Conjunctiva normal Neck: Musculoskeletal ROM normal neck. (-) JVD, (-) Stridor, (-) Tracheal deviation Cardio: Rhythm regular, rate normal, Heart sounds normal; Intact distal pulses; Radial pulses are 2+ and symmetric. (-) Murmur Pulmonary/Chest wall: Effort normal. (-) Respiratory distress, (-) Wheezes, (-) Rales Abd: Soft, (-) tenderness, (-) Distension, (-) Guarding, (-) Rebound Musculoskeletal: Left forearm is circumferentially swollen and erythematous, there is streaking erythema into left axilla, FROM at the elbow, fluid-filled bursa, area is not tender, slightly warm compared to other arm Lymph: (-) Cervical adenopathy Neuro: Alert, Oriented x3 Psych: Mood and affect Normal Triage Information Reviewed: Yes Vital Signs On Initial Exam: Initial Vitals Temp Pulse Resp BP Pulse Ox 98.3 F 110 20 116/85 95 06/03/19 07:48 06/03/19 07:48 06/03/19 07:48 06/03/19 07:48 06/03/19 07:48 Vital Signs Reviewed: Yes Procedures - Sedation Patient Received Moderate/Deep Sedation with Procedure: No Diagnostics - Vital Signs Vital Signs Temp Pulse Resp BP Pulse Ox 06/03/19 07:48 98.3 F 110 20 116/85 95 - Laboratory Result Diagrams: 06/03/19 08:17 06/03/19 08:17 Lab Statement: Any lab studies that have been ordered have been reviewed, and results considered in the medical decision making process. - Ultrasound Venous doppler study Ultrasound Interpretation Completed By: Radiologist Summary of Ultrasound Findings: NO LEFT UPPER EXTREMITY DEEP VEIN THROMBOSIS. ED PHYSICIAN HAS REVIEWED THIS REPORT. Re-Evaluation - Re-Evaluation First Eval Re-Evaluation Time: 09:05 Comment: agrees to admission Course/Dx - Course Course Of Treatment: Patient is here with swelling, erythema to the left forearm following venipuncture roughly 9 days ago. Patient has been on Augmentin for the past 2 days with no relief. Patient's forearm is very swollen and erythematous. It is not tender or much warmer than his other arm. Patient is likely suffering from a bad case of superficial phlebitis. Patient was given a dose of vancomycin and clindamycin. Patient had blood performed which showed stenosis of 13 and a CRP of nearly 350. Patient is admitted to the hospitalist service for further monitoring and treatment. - Diagnoses Provider Diagnoses: Cellulitis of left forearm, Hyperglycemia, Diabetes - Physician Notifications Discussed Care of Patient With: Felicia Miller Time Discussed With Above Provider: 09:04 Instructed by Provider To: Admit As Inpatient Discharge ED - Sign-Out/Discharge Documenting (check all that apply): Patient Departure - Discharge Plan Condition: Stable Disposition: ADMITTED TO [facility] - Billing Disposition and Condition Condition: STABLE Disposition: Admitted to [facility] - Attestation Statements Document Initiated by Candye: Yes Documenting Scribe: Donna Stark Provider For Whom Uma is Documenting (Include Credential): Michael Yanez MD Scribe Attestation: Donna Song, scribed for Michael Yanez MD on 06/03/19 at 1109. Scribe Documentation Reviewed: Yes Provider Attestation: The documentation as recorded by the Donna sanchez accurately reflects the service I personally performed and the decisions made by me, Michael Yanez MD Status of Scribe Document: Viewed
[2019-06-03 08:26] LABS: ABS Basophils 0.1 10^3/ul (0-0.2); ABS Lymphocytes 1.1 10^3/ul (1.0-4.8); ABS Monocytes 1.4 10^3/ul (0-0.8); ABS Neutrophils 10.4 10^3/ul (1.5-7.7); Eosinophil % 0.3 %; Hematocrit 41 % (42-52); Hemoglobin 13.9 g/dL (14.0-18.0); Lymphocyte % 8.5 %; Mean Corpuscular HGB Conc 34 g/dL (31-36); Mean Corpuscular Hemoglobin 29 pg (27-31); Mean Corpuscular Volume 84 fL (80-94); Mean Platelet Volume 9.5 fL (7.4-10.4); Nucleated Red Blood Cells % 0.1; Platelet Count 196 10^3/uL (150-450); Red Blood Count 4.86 10^6 /uL (4.18-5.48); Red Cell Distribution Width 15 % (10-15); White Blood Count 13.1 10^3/uL (3.5-10.8)
[2019-06-03 08:43] LABS: Albumin 3.4 g/dL (3.2-5.2); Albumin/Globulin Ratio 0.8 (1-3); BUN/Creatinine Ratio 17.9 (8-20); C Reactive Protein 344.6 mg/L (<8.01); Calcium 9.6 mg/dL (8.6-10.3); EGFR African American 73.9 (>60); EGFR Non-African American 61.1 (>60); Globulin 4.1 g/dL (2-4); Potassium 3.8 mmol/L (3.5-5.0); Total Bilirubin 0.8 mg/dL (0.2-1.0); Total Protein 7.5 g/dL (6.4-8.9)
[2019-06-03] MEDS ORDERED: Clindamycin 600 MG/D5W BAG(*) 600 MG/50 ML BAG IV ONE (08:53)
[2019-06-03] MEDS ORDERED: Vancomycin(*) 1,750 MG in NS 0.9% 250 ML* 250 ML IVPB ONE (09:30)
[2019-06-03] MEDS ORDERED: Al Hydrox/Mg Hydrox/Simet LIQ* 30 ML UDC PO PRN (10:26)
[2019-06-03] MEDS ORDERED: Acetaminophen TAB* 325 MG PO PRN (10:26)
[2019-06-03] MEDS ORDERED: Vancomycin(*) 1,000 MG in NS 0.9% 250 ML* 250 ML IVPB ONE (10:34)
[2019-06-03] MEDS ORDERED: Dextrose 50% VIAL 50 ml IV PUSH PRN (10:35)
[2019-06-03] MEDS ORDERED: Vancomycin per Pharmacy* NOTE FOLLOW UP SCH (11:00)
--- NOTE | 2019-06-03 12:18 | HP ---
CC: Dr. Ana Phillip; Dr. Mcqueen; Dr. Vinson* HISTORY AND PHYSICAL: DATE OF ADMISSION: 06/03/19 PRIMARY CARE PROVIDER: Dr. Ana Phillip. FOUNDER & CEO: Dr. Mcqueen. UROLOGIST: Dr. Vinson. CHIEF COMPLAINT: Left arm cellulitis. HISTORY OF PRESENT ILLNESS: Robel Padilla is a 73-year-old male with history of coronary artery disease and diabetes who had a blood drawn for lab test on . Subsequently, he developed cellulitis in his left arm. He associated that with his lab test that was drawn several days before. He came into see his primary care provider on 06/01/19 and was started on Augmentin. He was told by his primary care provider that if it does not improve 2 days into that he should come into the ED. He took his Augmentin on Tuesday night and during the Tuesday, and on Tuesday morning, he came into the ED for evaluation. Here, his cellulitis, as the patient stated himself, appears to be unchanged. He has been afebrile. His left arm is swollen. His C-reactive protein is above 300. The ED provider requested for the patient to be placed on overnight observation for failure of outpatient antibiotic treatment. PAST MEDICAL HISTORY: 1. Coronary artery bypass grafting in 2010. 2. Diabetes. 3. Hypertension. 4. 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 5. Status post TURP in May [address] Vinson. 6. Cataract surgery bilaterally. 7. Teeth extraction. 8. 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 MEDICATIONS AT HOME: Include: 1. Metformin 1000 mg b.i.d. 2. Glipizide 10 mg b.i.d. 3. Crestor 20 mg at bedtime. 4. Vitamin B6 100 mg at bedtime. 5. Protonix 40 mg daily. 6. Circle-3 fatty acids 1 capsule at bedtime. 7. Naproxen 220 mg b.i.d. p.r.n. 8. Multivitamin 1 tablet daily. 9. Metoprolol tartrate 25 mg b.i.d. 10. Victoza 1.8 mg subcutaneously q.a.m. 11. Jardiance 10 mg daily. 12. Cinnamon Bark 1000 mg daily. 13. Vitamin D3 1000 units at bedtime. 14. Aspirin 81 daily. 15. Acarbose 50 mg b.i.d. ALLERGIES: No known drug allergies FAMILY HISTORY: Positive for father who of heart attack at the age of 65 and mother who of old age in her 80s. SOCIAL HISTORY: The patient denies any tobacco, alcohol, or drug use. 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 He is a , lives alone. He has a female signing agent, her name is Sharmin Lopez, who would be his surrogate. Sharmin lives in [place], [place], phone number [phone]. REVIEW OF SYSTEMS: Please see history of present illness. All the remaining 12 systems were reviewed with the patient and were otherwise negative. PHYSICAL EXAMINATION GENERAL: The patient is a pleasant 73-year-old male, who is not in acute distress. Alert, awake, and oriented x3. VITAL SIGNS: Blood pressure of 116/65, heart rate of 110 and regular, respiratory rate 20, oxygen saturation 95% on room air, temperature 98.3. HEENT: Head atraumatic, normocephalic. Eyes: Pupils are equal and reactive to light and accommodation. Oropharynx is clear. Mucosa moist. NECK: Supple. No JVD. No bruits bilaterally. RESPIRATORY: Clear to auscultation bilaterally. CARDIOVASCULAR: Regular rate and rhythm. No murmur. ABDOMEN: Soft, nontender. Bowel sounds are present in all 4 quadrants. EXTREMITIES: There is no edema. Pulses are +2 on the right foot. The left distal lower extremity has prosthesis on. There is no clubbing, no cyanosis. SKIN: On evaluation of the skin, the left upper extremity has edema and cellulitis noted surrounding the area from the left wrist to the mid arm. There is streaking and erythema. The skin on the left forearm is dry and flaky. There is no evidence of abscess. No accumulation palpable. The patient does have visible and probable olecranon bursitis that is nontender. There is no evidence of impairment of range of motion. PSYCHIATRIC EVALUATION: Oriented x3. Pleasant and cooperative with evaluation with no evidence of anxiety or depression. DIAGNOSTIC STUDIES/LAB DATA: White blood cell count of 13.1, hemoglobin of 13.9, hematocrit of 41, platelets of 196. Sodium was 133, potassium 3.8, chloride 98, carbon dioxide 24, BUN 21, creatinine 1.17. Liver function test unremarkable. C-reactive protein of 344. Lactic acid of 1.4. Dopplers of left upper extremity were negative for DVT. ASSESSMENT AND PLAN: 1. Sepsis due to cellulitis. The patient was on Augmentin for a day and a half. At this point, the patient feels the same, he had been afebrile, and he is not sure if his cellulitis in fact has gotten worse, but it has not improved and his C- reactive protein is markedly elevated and he is developing olecranon bursitis. At this point, the patient is going to be placed for an overnight observation and treated with vancomycin. I suspect that he will be able to go home on either doxycycline or Bactrim. 2. For his diabetes, the patient is going to be placed on insulin sliding scale and metformin is going to be continued. Other oral hypoglycemics are going to be held. 3. For hypertension, the patient's metoprolol is going to be continued. 4. For DVT prophylaxis, the patient will be placed on heparin subcutaneously. 5. The patient's code status is full. His surrogate is his girlfriend, Sharmin , as mentioned above. TIME SPENT: Approximately 65 minutes was spent on admission of this patient, more than half that time was spent [id number] with the patient during the interview and physical exam. [id number]/[facility] #: [id number] JEFFREY
[2019-06-03] MEDS: Insulin LISPRO* 1 UNITS UNIT SUBCUT SCH ×3 (12:51→21:20)
[2019-06-03] MEDS: Heparin VIAL(*) 5000 UNITS/ML VIAL (FIVE THOUSAND) SUBCUT SCH ×2 (12:52→21:20)
[2019-06-03] MEDS: metFORMIN* 1,000 MG TAB PO SCH (17:28)
[2019-06-03] MEDS: ACARBOSE 25 MG PO SCH (17:28)
[2019-06-03] MEDS: Metoprolol Tartrate TAB* 25 MG PO SCH (21:19)
[2019-06-03] MEDS: Aspirin EC TAB* 81 MG TAB.EC PO SCH (21:19)
[2019-06-03] MEDS: Docusate CAP* 100 MG PO SCH (21:19)
[2019-06-03] MEDS: Pyridoxine TAB* 50 MG PO SCH (22:41)
[2019-06-03] MEDS: Vancomycin(*) 1,000 MG in NS 0.9% 250 ML* 250 ML IV SCH (22:58)
[2019-06-04] MEDS: Heparin VIAL(*) 5000 UNITS/ML VIAL (FIVE THOUSAND) SUBCUT SCH ×3 (05:41→21:22)
[2019-06-04] MEDS: Insulin LISPRO* 1 UNITS UNIT SUBCUT SCH ×4 (09:10→20:47)
[2019-06-04] MEDS: ACARBOSE 25 MG PO SCH ×2 (09:11→17:05)
[2019-06-04] MEDS: metFORMIN* 1,000 MG TAB PO SCH ×2 (09:11→17:05)
[2019-06-04] MEDS: Metoprolol Tartrate TAB* 25 MG PO SCH ×2 (09:11→21:22)
[2019-06-04] MEDS: Docusate CAP* 100 MG PO SCH ×2 (09:11→21:21)
[2019-06-04] MEDS: Pantoprazole TAB * 40 MG TAB PO SCH (09:11)
--- NOTE | 2019-06-04 10:57 | PN ---
Subjective Date of Service: 06/04/19 Interval History: Mr. Padilla feels that arm is "about the same," although he noted improved pain , redness receding from demarcated line. He states that he has had flaking skin , which as increased some since admission. He has no other complaints today. Objective Active Medications: Acarbose (Acarbose (Nf)) 50 mg PO BID WITH MEALS [facility] Last Admin: 06/04/19 09:11 Dose: 50 mg Acetaminophen (Tylenol Tab*) 650 mg PO Q4H PRN PRN Reason: PAIN-MILD/TEMP >/= 100.4 Al Hydrox/Mg Hydrox/Simethicone (Maalox Plus*) 30 ml PO Q6H PRN PRN Reason: INDIGESTION Aspirin (Aspirin Ec Tab*) 81 mg PO BEDTIME [facility] Last Admin: 06/03/19 21:19 Dose: 81 mg Dextrose (Dextrose 50% Vial 50 Ml*) 25 ml IV PUSH .FOR FS < 60 - SS PRN PRN Reason: FS < 60 Docusate Sodium (Colace Cap*) 100 mg PO BID [facility] Last Admin: 06/04/19 09:11 Dose: 100 mg Heparin Sodium (Porcine) (Heparin Vial(*)) 5,000 units SUBCUT Q8HR [facility] Last Admin: 06/04/19 05:41 Dose: 5,000 units Vancomycin HCl 1,000 mg/ (Sodium Chloride) 250 mls @ 166.667 mls/hr IV Q12H [facility] Last Admin: 06/03/19 22:58 Dose: 166.667 mls/hr Sodium Chloride (Ns 0.9% 1000 Ml) 1,000 mls @ 125 mls/hr IV PER RATE [facility] Stop: 06/04/19 18:59 Insulin Human Lispro (Humalog*) 0 units SUBCUT ACHS [facility]; Protocol Last Admin: 06/04/19 09:10 Dose: 2 units Metformin HCl (Glucophage*) 1,000 mg PO BID WITH MEALS [facility] Last Admin: 06/04/19 09:11 Dose: 1,000 mg Metoprolol Tartrate (Lopressor Tab*) 25 mg PO BID [facility] Last Admin: 06/04/19 09:11 Dose: 25 mg Pantoprazole Sodium (Protonix Tab*) 40 mg PO QAM [facility] Last Admin: 06/04/19 09:11 Dose: 40 mg Pharmacy Consult (Vancomycin Per Pharmacy*) 1 note FOLLOW UP .VANC PER PHARMACY [facility]; Protocol Pharmacy Profile Note (Vancomycin Trough Check) 1 note FOLLOW UP 1030 ONE Stop: 06/05/19 10:31 Pyridoxine HCl (Vitamin B6 Tab*) 100 mg PO BEDTIME [facility] Last Admin: 06/03/19 22:41 Dose: Not Given Vital Signs: Temp Pulse Resp BP Pulse Ox 98.7 F 88 16 105/72 97 06/04/19 07:15 06/04/19 07:15 06/04/19 07:15 06/04/19 07:15 06/04/19 07:15 Oxygen Devices in Use Now: None Appearance: Mr. Padilla is an older white male who is sitting in bed with LE at floor. He is breathing comfortably, in no acute distress. Eyes: No Scleral Icterus, PERRLA Ears/Nose/Mouth/Throat: Clear Oropharnyx, Mucous Membranes Moist, - - edentulous Neck: NL Appearance and Movements; NL JVP, Trachea Midline Respiratory: Symmetrical Chest Expansion and Respiratory Effort, Clear to Auscultation Cardiovascular: NL Sounds; No Murmurs; No JVD, RRR Abdominal: NL Sounds; No Tenderness; No Distention, No Hepatosplenomegaly Extremities: No Clubbing, Cyanosis, - - LUE with erythema from appx 2 inches proximal to wrist to elbow anteriorly, to mid upper arm medially; this has receded from line demarcated yesterday; skin is midly warm, dry, and flaking, nontender. 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 - Patient Problems (1) Sepsis Comment: -met criteria with leukocytosis, tachycardia -suspect 2/2 cellulitis -EKG: sinus arrhythmia, likely physiologic, respiratory - NGTD -on vanco (2) Cellulitis Comment: -on augmentin starting 06/01 with no improvement -on vanco now, improving -IV vanco with plan to transition to PO Keflex at discharge (3) Diabetes mellitus Comment: -continue acarbose, metformin -glipizide, empagliflozin on hold -continue FS glucose with lispro coverage per ss (4) Hypertension Comment: -well controlled with SBP 100-110's -continue metoprolol (5) DVT prophylaxis Comment: -heparin SQ (6) Full code status Status and Disposition: Observation. Discharge when stable.
[2019-06-04] MEDS ORDERED: NS 0.9% 1000 ML** 1,000 ML IV SCH (11:00)
[2019-06-04] MEDS: Vancomycin(*) 1,000 MG in NS 0.9% 250 ML* 250 ML IV SCH ×2 (11:18→22:33)
[2019-06-04 15:47] LABS: ABS Basophils 0.1 10^3/ul (0-0.2); ABS Lymphocytes 1.3 10^3/ul (1.0-4.8); ABS Monocytes 0.9 10^3/ul (0-0.8); ABS Neutrophils 8.3 10^3/ul (1.5-7.7); Eosinophil % 0.3 %; Hematocrit 35 % (42-52); Hemoglobin 11.7 g/dL (14.0-18.0); Lymphocyte % 11.8 %; Mean Corpuscular HGB Conc 33 g/dL (31-36); Mean Corpuscular Hemoglobin 28 pg (27-31); Mean Corpuscular Volume 84 fL (80-94); Mean Platelet Volume 9.5 fL (7.4-10.4); Nucleated Red Blood Cells % 0.1; Platelet Count 220 10^3/uL (150-450); Red Blood Count 4.18 10^6 /uL (4.18-5.48); Red Cell Distribution Width 15 % (10-15); White Blood Count 10.6 10^3/uL (3.5-10.8)
[2019-06-04] MEDS: Aspirin EC TAB* 81 MG TAB.EC PO SCH (21:21)
[2019-06-04] MEDS: Pyridoxine TAB* 50 MG PO SCH (21:23)
[2019-06-05] MEDS: Heparin VIAL(*) 5000 UNITS/ML VIAL (FIVE THOUSAND) SUBCUT SCH ×3 (05:44→21:51)
[2019-06-05 06:26] LABS: Hematocrit 37 % (42-52); Hemoglobin 12.2 g/dL (14.0-18.0); Mean Corpuscular HGB Conc 33 g/dL (31-36); Mean Corpuscular Hemoglobin 29 pg (27-31); Mean Corpuscular Volume 86 fL (80-94); Mean Platelet Volume 9.9 fL (7.4-10.4); Platelet Count 237 10^3/uL (150-450); Red Blood Count 4.26 10^6 /uL (4.18-5.48); Red Cell Distribution Width 15 % (10-15); White Blood Count 8.8 10^3/uL (3.5-10.8)
[2019-06-05 06:49] LABS: BUN/Creatinine Ratio 19.4 (8-20); C Reactive Protein 177.02 mg/L (<8.01); Calcium 8.7 mg/dL (8.6-10.3); EGFR African American 85.7 (>60); EGFR Non-African American 70.8 (>60); Potassium 4.1 mmol/L (3.5-5.0)
[2019-06-05 07:56] LABS: ABS Eosinophils 0.1 10^3/ul (0-0.6); ABS Lymphocytes 1.4 10^3/ul (1.0-4.8); ABS Monocytes 0.6 10^3/ul (0-0.8); ABS Neutrophils 6.7 10^3/ul (1.5-7.7); Eosinophil % 0.6 %
[2019-06-05] MEDS: metFORMIN* 1,000 MG TAB PO SCH ×2 (08:43→17:48)
[2019-06-05] MEDS: Docusate CAP* 100 MG PO SCH ×2 (08:43→21:50)
[2019-06-05] MEDS: Insulin LISPRO* 1 UNITS UNIT SUBCUT SCH ×4 (08:44→21:51)
[2019-06-05] MEDS: Pantoprazole TAB * 40 MG TAB PO SCH (08:44)
[2019-06-05] MEDS: Metoprolol Tartrate TAB* 25 MG PO SCH ×2 (08:47→21:50)
[2019-06-05] MEDS: ACARBOSE 25 MG PO SCH ×2 (08:47→17:48)
[2019-06-05] MEDS ORDERED: Vancomycin Trough Check NOTE FOLLOW UP ONE (10:30)
[2019-06-05 11:06] LABS: EGFR African American 90.7 (>60)
--- NOTE | 2019-06-05 11:15 | PN ---
Subjective Date of Service: 06/05/19 Interval History: Mr. Padilla does not feel that there has been any improvement in the LUE. He denies pain, but notes a tight sensation with elbow flexion. He notes skin flaking is about the same as yesterday. He has no other complaints today. Objective Active Medications: Acarbose (Acarbose (Nf)) 50 mg PO BID WITH MEALS [facility] Last Admin: 06/05/19 08:47 Dose: 50 mg Acetaminophen (Tylenol Tab*) 650 mg PO Q4H PRN PRN Reason: PAIN-MILD/TEMP >/= 100.4 Al Hydrox/Mg Hydrox/Simethicone (Maalox Plus*) 30 ml PO Q6H PRN PRN Reason: INDIGESTION Aspirin (Aspirin Ec Tab*) 81 mg PO BEDTIME [facility] Last Admin: 06/04/19 21:21 Dose: 81 mg Dextrose (Dextrose 50% Vial 50 Ml*) 25 ml IV PUSH .FOR FS < 60 - SS PRN PRN Reason: FS < 60 Docusate Sodium (Colace Cap*) 100 mg PO BID [facility] Last Admin: 06/05/19 08:43 Dose: 100 mg Heparin Sodium (Porcine) (Heparin Vial(*)) 5,000 units SUBCUT Q8HR [facility] Last Admin: 06/05/19 05:44 Dose: 5,000 units Vancomycin HCl 1,000 mg/ (Sodium Chloride) 250 mls @ 166.667 mls/hr IV Q12H [facility] Last Admin: 06/04/19 22:33 Dose: 166.667 mls/hr Insulin Human Lispro (Humalog*) 0 units SUBCUT ACHS [facility]; Protocol Last Admin: 06/05/19 08:44 Dose: 2 units Metformin HCl (Glucophage*) 1,000 mg PO BID WITH MEALS [facility] Last Admin: 06/05/19 08:43 Dose: 1,000 mg Metoprolol Tartrate (Lopressor Tab*) 25 mg PO BID [facility] Last Admin: 06/05/19 08:47 Dose: Not Given Pantoprazole Sodium (Protonix Tab*) 40 mg PO QAM [facility] Last Admin: 06/05/19 08:44 Dose: 40 mg Pharmacy Consult (Vancomycin Per Pharmacy*) 1 note FOLLOW UP .VANC PER PHARMACY [facility]; Protocol Pyridoxine HCl (Vitamin B6 Tab*) 100 mg PO BEDTIME [facility] Last Admin: 06/04/19 21:23 Dose: Not Given Vital Signs: Temp Pulse Resp BP Pulse Ox 97.9 F 79 20 103/63 97 06/05/19 07:15 06/05/19 07:15 06/05/19 07:53 06/05/19 07:15 06/05/19 07:15 Oxygen Devices in Use Now: None Appearance: Mr. Padilla is an older white male who is sitting at edge of bed; he is somewhat disheveled and smells of urine. He is sitting at edge of bed, in no acute distress. Eyes: No Scleral Icterus, PERRLA Ears/Nose/Mouth/Throat: NL Teeth, Lips, Gums, Clear Oropharnyx, Mucous Membranes Moist Neck: NL Appearance and Movements; NL JVP, Trachea Midline Respiratory: Symmetrical Chest Expansion and Respiratory Effort, Clear to Auscultation Cardiovascular: NL Sounds; No Murmurs; No JVD, RRR Abdominal: NL Sounds; No Tenderness; No Distention, No Hepatosplenomegaly Extremities: No Clubbing, Cyanosis, - - b/l LE without edema; LUE with erythema , edema, and skin flaking that is similar to yesterday's exam; nontender with full ROM; noted edema to the L olecranon bursa Neurological: Alert and Oriented x 3, - - CN II-XII grossly intact Result Diagrams: 06/05/19 05:42 06/05/19 10:33 Microbiology and Other Data: Microbiology 06/03/19 08:18 Aerobic Blood Culture - Preliminary Blood Venous No Growth Day 1 Anaerobic Blood Culture - Preliminary No Growth Day 1 06/03/19 08:11 Aerobic Blood Culture - Preliminary Blood Venous No Growth Day 1 Anaerobic Blood Culture - Preliminary No Growth Day 1 Assess/Plan/Problems-Billing Assessment: 73 yom PMHx CABG 2010, DM, HTN presents with LUE cellulitis not improved outpatient with Augmentin. - Patient Problems (1) Cellulitis Comment: -on augmentin starting 06/01 with no improvement -on vanco now with some improvement first night of admission -today erythema has not receded from marked area (re-marked), but patient is feeling well -leukocytosis and CRP improved -IV vanco with plan to transition to PO doxy or clinda at discharge (2) Sepsis Comment: -met criteria with leukocytosis, tachycardia, since resolved -suspect 2/2 cellulitis -EKG: sinus arrhythmia, likely physiologic, respiratory - NGTD -on vanco (3) Diabetes mellitus Comment: -BS 140-170's today -continue home acarbose, metformin -continue FS glucose with lispro coverage per ss -glipizide, empagliflozin on hold (4) Hypertension Comment: -well controlled with SBP 100-120's -continue metoprolol (5) DVT prophylaxis Comment: -heparin SQ (6) Full code status Status and Disposition: Observation. Discharge when stable.
[2019-06-05 11:34] LABS: Vancomycin Trough 9.4 mcg/mL
[2019-06-05] MEDS: Vancomycin(*) 1,000 MG in NS 0.9% 250 ML* 250 ML IV SCH (12:44)
[2019-06-05] MEDS: Vancomycin(*) 1,250 MG in NS 0.9% 250 ML* 250 ML IV SCH (14:10)
[2019-06-05] MEDS: Aspirin EC TAB* 81 MG TAB.EC PO SCH (21:50)
[2019-06-05] MEDS: Pyridoxine TAB* 50 MG PO SCH (21:51)
[2019-06-06] MEDS: Vancomycin(*) 1,250 MG in NS 0.9% 250 ML* 250 ML IV SCH (01:30)
[2019-06-06] MEDS: Heparin VIAL(*) 5000 UNITS/ML VIAL (FIVE THOUSAND) SUBCUT SCH (05:42)
[2019-06-06] MEDS: Docusate CAP* 100 MG PO SCH (07:59)
[2019-06-06] MEDS: Pantoprazole TAB * 40 MG TAB PO SCH (07:59)
[2019-06-06] MEDS: Metoprolol Tartrate TAB* 25 MG PO SCH (07:59)
[2019-06-06] MEDS: metFORMIN* 1,000 MG TAB PO SCH (07:59)
[2019-06-06] MEDS: Insulin LISPRO* 1 UNITS UNIT SUBCUT SCH (07:59)
[2019-06-06] MEDS: ACARBOSE 25 MG PO SCH (07:59)
[2019-06-06 08:02] VITALS: BP 116/67
[2019-06-06] MEDS ORDERED: DOXYcycline CAP(*) 100 MG PO ONE (08:30)
--- NOTE | 2019-06-06 15:31 | DS ---
CC: Dr. nAa Baker DISCHARGE SUMMARY: DATE OF ADMISSION: 06/03/19 DATE OF DISCHARGE: 06/06/19 REASON FOR ADMISSION: Left arm cellulitis. PRIMARY CARE PROVIDER: Dr. Ana Baker. HOSPITAL COURSE: This is a 73-year-old male with history of coronary artery disease, diabetes, who presented to the emergency room because of left arm cellulitis. He was diagnosed with a left arm cellulitis by the primary care provider and was started on Augmentin. He was told by the primary care doctor that if he did not improve by 2 days, he should come to the emergency room, so he presented to the emergency room, complaining that his cellulitis, which the symptoms include redness, swelling, and pain had worsened. When he presented to the emergency room, he was found to have a white count of 13.1 with absolute neutrophils of 10.4. The patient did not have a fever on admission. He was admitted to the hospital, started on IV vancomycin, the left upper extremity cellulitis area we marked it with a marker. The patient continued to improve, his erythema and swelling receded; however, were still present. He remained afebrile throughout the hospital course. His white count trended from 13.1 on 06/03/19 to 8.8 on 06/05/19. This morning patient was seen and evaluated. DVT was ruled out. PHYSICAL EXAMINATION: Blood pressure is 111/67, heart rate of 76, respiratory rate of 20, oxygenation 97% on room air, temperature of 97.5 Fahrenheit. General: This is a well-developed, well-nourished male, sitting on bed in no acute distress. HEENT: Pupils equal, round and reactive. Atraumatic, normocephalic. There is no JVD. Heart: There is no chest wall tenderness, regular rate and rhythm. No murmurs. Lungs: Clear to auscultation without any wheezing, rales, or rhonchi. Extremities: There is no lower extremity edema. No calf tenderness. Left upper extremity shows there is mild erythema with swelling, no tenderness. The area has receded from the demarcated line. There is a left leg prosthesis noted. DISCHARGE DIAGNOSES: Include: 1. Left arm cellulitis. 2. Additional diagnosis also includes sepsis secondary to cellulitis. 3. Type 2 diabetes. 4. Hypertension. 5. History of coronary artery disease. DISCHARGE MEDICATIONS: Include doxycycline 100 mg for the next 7 days. The patient was given 1 dose in the hospital as well as our pharmacy will give him one dose to go home to take tonight as his pharmacy is closed due to holidays. Home medications include: 1. Acarbose 50 mg b.i.d. 2. Aspirin 81 mg daily. 3. Cholecalciferol 1000 units at bedtime. 4. Cinnamon bark. 5. Empagliflozin 10 mg in the morning. 6. Glipizide 10 mg twice a day. 7. Victoza 1.8 mg subcu in the morning. 8. Metformin 1000 mg b.i.d. 9. Metoprolol tartrate 25 mg b.i.d. 10. Multivitamins 1 cap daily. 11. Naproxen 220 mg twice a day as needed. 12. [place]-3 fatty acid 1 cap at bedtime. 13. Pantoprazole 40 mg daily. 14. Vitamin B6 100 mg at bedtime. 15. Rosuvastatin 20 mg at bedtime. DISCHARGE CONDITION: Stable. DISCHARGE DISPOSITION: Home. DIET: Includes diabetic diet. FOLLOWUP INSTRUCTIONS: The patient is to follow up with Dr. Baker in 1 week who is his primary care doctor. The patient to return to the emergency room for fevers, chills, worsening left arm rash or if any new issues occur. [id number]/[facility] #: [id number] MTDD
== END 2019-06-06 10:45 | disposition home or self-care (01) | DRG 872 ==
LOC: ED 07:47 → MED 10:26 → OBSVTOIN 06-05 14:00
PROVIDERS: ADMIT Internal Medicine; ATTEND Internal Medicine
DX: A41.9 Sepsis, unspecified organism (principal); L03.114 Cellulitis of left upper limb; I25.10 Atherosclerotic heart disease of native coronary artery without angina pectoris; E11.9 Type 2 diabetes mellitus without complications; K21.9 Gastro-esophageal reflux disease without esophagitis; I10 Essential (primary) hypertension; Z79.84 Long term (current) use of oral hypoglycemic drugs; Z79.899 Other long term (current) drug therapy; Z79.82 Long term (current) use of aspirin; Z95.1 Presence of aortocoronary bypass graft; Z89.022 Acquired absence of left finger(s)
CPT/HCPCS: 36415; 80048; 80053; 80202; 82565; 83605; 84520; 85025; 86140; 87040; 93005; 99285; A9270-GY; G0378; J1644; J3370

== ENCOUNTER 2020-09-02 12:58 | Inpatient (IN) ==
[2020-09-02] MEDS ORDERED: Ondansetron 4 mg VIAL 2 MG/ML 2 ml VIAL IV ONE (16:37)
[2020-09-02] MEDS ORDERED: HYDROmorphone 0.5 MG/0.5 ML SYRINGE IV ONE (16:37)
[2020-09-02] MEDS ORDERED: NS 0.9% 1000 ml BAG 1,000 ML IV ONE ×2 (16:37→18:57)
[2020-09-02 17:03] LABS: ABS Lymphocytes 0.9 10^3/ul (1.0-4.8); ABS Neutrophils 11.6 10^3/ul (1.5-7.7); Eosinophil % 0.1 %; Hematocrit 49 % (42-52); Hemoglobin 15.8 g/dL (14.0-18.0); Lymphocyte % 6.5 %; Mean Corpuscular HGB Conc 32 g/dL (31-36); Mean Corpuscular Hemoglobin 28 pg (27-31); Mean Corpuscular Volume 85 fL (80-94); Mean Platelet Volume 9.7 fL (7.4-10.4); Platelet Count 186 10^3/uL (150-450); Red Blood Count 5.76 10^6 /uL (4.18-5.48); Red Cell Distribution Width 16 % (10-15); White Blood Count 13.5 10^3/uL (3.5-10.8)
[2020-09-02] MEDS ORDERED: Piperacillin/Tazobac ADVAN 3.375 GM in NS 0.9% 100 ml BAG 100 ML IVPB ONE (17:05)
[2020-09-02 17:14] LABS: Albumin 4.4 g/dL (3.2-5.2); Albumin/Globulin Ratio 1.4 (1-3); BUN/Creatinine Ratio 15.3 (8-20); C Reactive Protein 86.69 mg/L (<8.01); Calcium 9.5 mg/dL (8.6-10.3); EGFR African American 61.3 (>60); EGFR Non-African American 50.7 (>60); Globulin 3.2 g/dL (2-4); Magnesium 2.1 mg/dL (1.9-2.7); Total Bilirubin 5.6 mg/dL (0.2-1.0); Total Protein 7.6 g/dL (6.4-8.9)
[2020-09-02 17:18] LABS: Activated Partial Thrombo Time 29.7 seconds (26.0-38.0); INR 1.23 (0.82-1.09)
[2020-09-02] MEDS ORDERED: Piperacillin/Tazobac 3.375 GM BAG ONE (17:26)
[2020-09-02] MEDS ORDERED: Iodixanol (CONTRAST) 320 MG/ML 100 ML SDV IV ONE (17:30)
[2020-09-02 18:02] LABS: Troponin I 0.01 ng/mL (<0.03)
[2020-09-02 19:14] LABS: Urine Appearance Clear; Urine Bilirubin Negative (Negative); Urine Blood 1+ (Negative); Urine Color Yellow; Urine Glucose 3+(>=500 mg/dL) (Negative); Urine Ketones Trace (Negative); Urine Nitrite Negative (Negative); Urine Protein Negative (Negative); Urine Specific Gravity 1.041 (1.010-1.030); Urine Urobilinogen Negative (Negative)
[2020-09-02 19:40] LABS: Urine Bacteria Absent (Absent); Urine Red Blood Cell Trace(0-2/hpf) (Absent); Urine White Blood Cell 1+(6-10/hpf) (Absent)
[2020-09-02] MEDS ORDERED: Piperacillin/Tazobac ADVAN 3.375 GM in NS 0.9% 100 ml BAG 100 ML IV ONE (21:08)
[2020-09-02] MEDS ORDERED: Dextrose 50% Syringe 50 ml 25 GM/50 ML SYRINGE IV PUSH PRN (21:11)
[2020-09-02] MEDS ORDERED: Zosyn per Pharmacy NOTE FOLLOW UP SCH (22:00)
[2020-09-02] MEDS ORDERED: Lactated Ringers 1000 ml BAG 1,000 ML IV SCH (22:00)
[2020-09-02] MEDS: Morphine 2 MG/ML SYRINGE IV PRN (22:07)
[2020-09-02] MEDS: Lactated Ringers 1000 ml BAG 1,000 ML IV SCH (23:14)
[2020-09-02] MEDS: ZOSYN 3.375 GM Q8H per EXTENDED INFUSION IV SCH (23:48)
[2020-09-02] MEDS: Enoxaparin 40 MG/0.4 ML SYR SUBCUT SCH (23:50)
[2020-09-03] MEDS: Morphine 2 MG/ML SYRINGE IV PRN ×4 (03:00→21:24)
[2020-09-03] MEDS: Lactated Ringers 1000 ml BAG 1,000 ML IV SCH ×2 (05:03→12:05)
[2020-09-03] MEDS: ZOSYN 3.375 GM Q8H per EXTENDED INFUSION IV SCH ×3 (05:54→21:28)
[2020-09-03 07:09] LABS: ABS Lymphocytes 0.5 10^3/ul (1.0-4.8); ABS Monocytes 1.1 10^3/ul (0-0.8); ABS Neutrophils 12.9 10^3/ul (1.5-7.7); Hematocrit 44 % (42-52); Hemoglobin 14.7 g/dL (14.0-18.0); Lymphocyte % 3.6 %; Mean Corpuscular HGB Conc 33 g/dL (31-36); Mean Corpuscular Hemoglobin 28 pg (27-31); Mean Corpuscular Volume 84 fL (80-94); Mean Platelet Volume 9.5 fL (7.4-10.4); Platelet Count 131 10^3/uL (150-450); Red Blood Count 5.26 10^6 /uL (4.18-5.48); Red Cell Distribution Width 16 % (10-15); White Blood Count 14.6 10^3/uL (3.5-10.8)
[2020-09-03 07:19] LABS: Albumin 3.9 g/dL (3.2-5.2); Albumin/Globulin Ratio 1.5 (1-3); BUN/Creatinine Ratio 15.4 (8-20); Calcium 8.6 mg/dL (8.6-10.3); EGFR African American 84.2 (>60); EGFR Non-African American 69.6 (>60); Globulin 2.6 g/dL (2-4); Indirect Bilirubin 1.9 mg/dL (0.3-1.0); Potassium 4.2 mmol/L (3.5-5.0); Total Bilirubin 3.4 mg/dL (0.2-1.0); Total Protein 6.5 g/dL (6.4-8.9)
[2020-09-03] MEDS ORDERED: NFT: Empagliflozin (NF) 25 MG TABLET PO SCH (09:00)
[2020-09-03] MEDS: ACARBOSE 25 MG PO SCH ×2 (11:09→13:51)
[2020-09-03] MEDS: Cholecalciferol (VIT D3) 1,000 unit TAB PO SCH (21:26)
[2020-09-03] MEDS: Enoxaparin 40 MG/0.4 ML SYR SUBCUT SCH (21:27)
[2020-09-03] MEDS: Aspirin EC 81 mg TAB.EC (enteric coated) PO SCH (21:27)
[2020-09-04] MEDS: ZOSYN 3.375 GM Q8H per EXTENDED INFUSION IV SCH ×3 (05:33→22:51)
[2020-09-04 05:37] LABS: ABS Lymphocytes 0.6 10^3/ul (1.0-4.8); ABS Monocytes 1.2 10^3/ul (0-0.8); ABS Neutrophils 11.1 10^3/ul (1.5-7.7); Hematocrit 41 % (42-52); Hemoglobin 13.7 g/dL (14.0-18.0); Lymphocyte % 4.7 %; Mean Corpuscular HGB Conc 33 g/dL (31-36); Mean Corpuscular Hemoglobin 28 pg (27-31); Mean Corpuscular Volume 84 fL (80-94); Mean Platelet Volume 9.1 fL (7.4-10.4); Platelet Count 108 10^3/uL (150-450); Red Blood Count 4.91 10^6 /uL (4.18-5.48); Red Cell Distribution Width 16 % (10-15); White Blood Count 12.9 10^3/uL (3.5-10.8)
[2020-09-04 05:54] LABS: Albumin 3.8 g/dL (3.2-5.2); Albumin/Globulin Ratio 1.4 (1-3); BUN/Creatinine Ratio 17.9 (8-20); Calcium 8.7 mg/dL (8.6-10.3); EGFR African American 93.5 (>60); EGFR Non-African American 77.3 (>60); Globulin 2.8 g/dL (2-4); Potassium 3.8 mmol/L (3.5-5.0); Total Bilirubin 2.7 mg/dL (0.2-1.0); Total Protein 6.6 g/dL (6.4-8.9)
[2020-09-04] MEDS ORDERED: Insulin GLARGINE 100 un/ml 10 ml VIAL SUBCUT ONE (15:00)
[2020-09-04] MEDS: Cholecalciferol (VIT D3) 1,000 unit TAB PO SCH (20:38)
[2020-09-04] MEDS: Aspirin EC 81 mg TAB.EC (enteric coated) PO SCH (20:39)
[2020-09-05] MEDS ORDERED: Lactated Ringers 1000 ml BAG 1,000 ML IV SCH (06:00)
[2020-09-05] MEDS ORDERED: Buffered Lidocaine 1% SYRIN 1 ml INTRADERM ONE (06:00)
[2020-09-05 06:08] LABS: ABS Lymphocytes 0.7 10^3/ul (1.0-4.8); ABS Monocytes 1.1 10^3/ul (0-0.8); ABS Neutrophils 9.6 10^3/ul (1.5-7.7); Hematocrit 43 % (42-52); Hemoglobin 14.2 g/dL (14.0-18.0); Mean Corpuscular HGB Conc 33 g/dL (31-36); Mean Corpuscular Hemoglobin 28 pg (27-31); Mean Corpuscular Volume 85 fL (80-94); Mean Platelet Volume 9.3 fL (7.4-10.4); Platelet Count 108 10^3/uL (150-450); Red Blood Count 5.09 10^6 /uL (4.18-5.48); Red Cell Distribution Width 16 % (10-15); White Blood Count 11.4 10^3/uL (3.5-10.8)
[2020-09-05] MEDS: ZOSYN 3.375 GM Q8H per EXTENDED INFUSION IV SCH ×2 (06:29→15:45)
[2020-09-05 06:30] LABS: BUN/Creatinine Ratio 16.1 (8-20); Calcium 8.6 mg/dL (8.6-10.3); EGFR African American 95.8 (>60); EGFR Non-African American 79.2 (>60); Potassium 3.3 mmol/L (3.5-5.0)
[2020-09-05] MEDS: KCL 20 MEQ/100 ML IVPREMIX 20 MEQ/100 ML BAG IV SCH ×2 (08:25→15:49)
[2020-09-05] MEDS ORDERED: Lidocaine 2% PF 5 ML VIAL ONE (08:40)
[2020-09-05] MEDS ORDERED: Propofol 10 MG/ML 20 ML BTL ONE (08:40)
[2020-09-05] MEDS ORDERED: Ondansetron 4 mg VIAL 2 MG/ML 2 ml VIAL ONE ×2 (08:40→11:51)
[2020-09-05] MEDS ORDERED: Rocuronium 50 mg VIAL 10 mg/ml 5 ml VIAL (50 mg) ONE ×2 (08:40→12:27)
[2020-09-05] MEDS ORDERED: Dexamethasone IV 4 MG/ML VIAL 1 ml VIAL ONE ×2 (08:40→11:51)
[2020-09-05] MEDS ORDERED: fentaNYL 250 mcg/5 ml 50 MCG/ML 5 ml VIAL (250 MCG) ONE ×2 (08:49→12:24)
[2020-09-05] MEDS ORDERED: fentaNYL 100 mcg/2 ml 50 MCG/ML VIAL ONE (09:16)
[2020-09-05] MEDS ORDERED: HYDROmorphone 1 MG/1 ML SYRINGE ONE ×2 (09:16→12:24)
[2020-09-05] MEDS ORDERED: Midazolam 2 mg/2 ml VIAL 1 mg/ml 2 ml VIAL (2 mg) ONE (11:18)
[2020-09-05] MEDS ORDERED: Iohexol 180 (CONTRAST) 10 ML SDV IV ONE (11:21)
[2020-09-05] MEDS ORDERED: Bupivacaine 0.25% EPI 200,000 30 ML SDV ONE (11:22)
[2020-09-05] MEDS ORDERED: Etomidate 20 mg/10 ml 2 MG/ML 10 ml VIAL ONE (11:40)
[2020-09-05] MEDS ORDERED: Metoprolol Tartrate 5 mg VIAL 5 ml VIAL (1 mg/ml) ONE (11:53)
[2020-09-05] MEDS: Morphine 2 MG/ML SYRINGE IV PRN ×2 (17:22→21:32)
[2020-09-05] MEDS: LACTATED RINGERS 1000 ML BAG IV SCH (17:24)
[2020-09-05 21:16] LABS: Glucose Confirmatory 406 mg/dL (70-100)
[2020-09-05] MEDS: Amoxicillin/Clavul 500/125 TAB (Augmentin 500 mg tab) PO SCH (21:29)
[2020-09-05] MEDS: Aspirin EC 81 mg TAB.EC (enteric coated) PO SCH (21:29)
[2020-09-05] MEDS: Cholecalciferol (VIT D3) 1,000 unit TAB PO SCH (21:29)
[2020-09-06 06:12] LABS: ABS Lymphocytes 0.8 10^3/ul (1.0-4.8); ABS Monocytes 1.1 10^3/ul (0-0.8); ABS Neutrophils 8.9 10^3/ul (1.5-7.7); Hematocrit 40 % (42-52); Hemoglobin 13.1 g/dL (14.0-18.0); Mean Corpuscular HGB Conc 33 g/dL (31-36); Mean Corpuscular Hemoglobin 28 pg (27-31); Mean Corpuscular Volume 84 fL (80-94); Mean Platelet Volume 9.2 fL (7.4-10.4); Platelet Count 130 10^3/uL (150-450); Red Blood Count 4.69 10^6 /uL (4.18-5.48); Red Cell Distribution Width 16 % (10-15); White Blood Count 10.8 10^3/uL (3.5-10.8)
[2020-09-06 06:29] LABS: BUN/Creatinine Ratio 23.2 (8-20); Calcium 8.3 mg/dL (8.6-10.3); EGFR African American 93.5 (>60); EGFR Non-African American 77.3 (>60); Magnesium 1.9 mg/dL (1.9-2.7); Potassium 3.8 mmol/L (3.5-5.0)
[2020-09-06] MEDS: Morphine 2 MG/ML SYRINGE IV PRN (07:51)
[2020-09-06] MEDS: Amoxicillin/Clavul 500/125 TAB (Augmentin 500 mg tab) PO SCH (07:58)
[2020-09-06] MEDS: LACTATED RINGERS 1000 ML BAG IV SCH (07:59)
[2020-09-06 11:49] VITALS: BP 137/70
== END 2020-09-06 12:30 | disposition home or self-care (01) | DRG 412 ==
LOC: ED 12:58 → SSU 21:05 → MED 22:10
PROVIDERS: ADMIT Internal Medicine; ATTEND Internal Medicine

== ENCOUNTER 2021-03-26 23:51 | Inpatient (IN) ==
[2021-03-27 00:50] LABS: ALT 35 U/L (7-52); AST 55 U/L (13-39); Albumin 1.9 g/dL (3.2-5.2); Albumin/Globulin Ratio 0.4 (1-3); Alkaline Phosphatase 231 U/L (35-149); Anion Gap 6 mmol/L (2-11); Blood Urea Nitrogen 11 mg/dL (6-24); CO2 Carbon Dioxide 25 mmol/L (22-32); Chloride 101 mmol/L (101-111); Globulin 4.7 g/dL (2-4); Glucose 127 mg/dL (70-100); Potassium 4.5 mmol/L (3.5-5.0); Sodium 132 mmol/L (135-145); Total Protein 6.6 g/dL (6.4-8.9)
[2021-03-27 01:04] LABS: ABS Basophils 0.1 10^3/ul (0-0.2); ABS Lymphocytes 0.4 10^3/ul (1.0-4.8); ABS Monocytes 0.7 10^3/ul (0-0.8); ABS Neutrophils 11.7 10^3/ul (1.5-7.7); Eosinophil % 0.2 %; Hematocrit 29 % (42-52); Lymphocyte % 3.3 %; Mean Corpuscular HGB Conc 31 g/dL (31-36); Mean Corpuscular Hemoglobin 22 pg (27-31); Mean Corpuscular Volume 71 fL (80-94); Mean Platelet Volume 7.6 fL (7.4-10.4); Platelet Count 133 10^3/uL (150-450); Red Blood Count 4.06 10^6 /uL (4.18-5.48); Red Cell Distribution Width 23 % (10-15)
[2021-03-27] MEDS ORDERED: Piperacillin/Tazobac ADVAN 3.375 GM in NS 0.9% 100 ml BAG 100 ML IVPB ONE (01:47)
[2021-03-27] MEDS ORDERED: Lactated Ringers 1000 ml BAG 1,000 ML IV ONE ×2 (01:47→03:16)
[2021-03-27] MEDS ORDERED: Iodixanol (CONTRAST) 320 MG/ML 100 ML SDV IV ONE (01:50)
[2021-03-27 01:55] LABS: Troponin I 0.06 ng/mL (<0.03)
[2021-03-27 02:28] LABS: Activated Partial Thrombo Time 31.1 seconds (26.0-38.0); INR 1.45 (0.86-1.15)
[2021-03-27 02:36] LABS: Lipase 15 U/L (11.0-82.0)
[2021-03-27 04:13] LABS: Troponin I 0.14 ng/mL (<0.03)
[2021-03-27 05:49] LABS: C Reactive Protein 139.44 mg/L (<8.01)
[2021-03-27 06:15] LABS: Rapid COVID-19 Molecular Undetected (Undetected)
[2021-03-27 07:16] LABS: Troponin I 0.16 ng/mL (<0.03)
[2021-03-27 07:21] LABS: LDH 130 U/L (140-271); Total Iron Binding Capacity 132 mcg/dL (250-450); Transferrin 94 mg/dL (203-362)
[2021-03-27 07:27] LABS: % Iron Saturation 15 % (15-55); Iron < 20 ug/dL (50-212); Unsaturated Iron Binding < 117 ug/dL
[2021-03-27 07:40] LABS: Ferritin 357.8 ng/mL (24-336)
[2021-03-27] MEDS ORDERED: cefTAZidime (*) 1 GM in NS 0.9% 50 ML 50 ML IVPB SCH (10:00)
[2021-03-27 13:40] LABS: Body Fluid Source Peritonial Fluid
[2021-03-27 16:37] LABS: Magnesium 1.5 mg/dL (1.9-2.7)
[2021-03-27 16:42] LABS: Troponin I 0.08 ng/mL (<0.03)
[2021-03-27 16:43] LABS: Body Fluid WBC 1410 /mcL
[2021-03-27] MEDS ORDERED: Magnesium Sulf 4 GM/100 ML IV 4,000 MG/100 ML BAG IVPB ONE (16:44)
[2021-03-27] MEDS: Albumin Human 25% 12.5 GM/50 ML BTL IV SCH ×2 (17:07→17:52)
[2021-03-27 17:14] LABS: Body Fluid Appearance Cloudy; Body Fluid Mono 2 %; Body Fluid Total Cells Counted 200; Body Fluid Variant Lymph 2 %
[2021-03-27 17:15] LABS: Body Fluid Color Colorless
[2021-03-27] MEDS: Enoxaparin 40 MG/0.4 ML SYR SUBCUT SCH (18:23)
[2021-03-27] MEDS: Cholecalciferol (VIT D3) 1,000 unit TAB PO SCH (20:40)
[2021-03-27] MEDS: Aspirin EC 81 mg TAB.EC (enteric coated) PO SCH (20:40)
[2021-03-27] MEDS ORDERED: Metoprolol Tartrate 5 mg VIAL 5 ml VIAL (1 mg/ml) IV ONE (22:37)
[2021-03-27] MEDS ORDERED: NS 0.9% 500 ml BAG 500 ML IV ONE (22:44)
[2021-03-27] MEDS ORDERED: Vancomycin 1,000 MG in NS 0.9% 250 ml 250 ML IVPB ONE (22:48)
[2021-03-27] MEDS ORDERED: Acetaminophen IV 1 GM/100ML 100 ML IV ONE (22:57)
[2021-03-27] MEDS ORDERED: Vancomycin per Pharmacy 1 EA NOTE FOLLOW UP SCH (23:00)
[2021-03-27] MEDS ORDERED: Dextrose 50% Syringe 50 ml 25 GM/50 ML SYRINGE IV PUSH PRN (23:24)
[2021-03-27 23:31] LABS: Venous Bicarbonate HCO3 25.3 mmol/L (24-28)
[2021-03-27 23:51] LABS: Urine Appearance Cloudy; Urine Bilirubin Negative (Negative); Urine Blood Negative (Negative); Urine Color Yellow; Urine Glucose 3+(>=500 mg/dL) (Negative); Urine Ketones Negative (Negative); Urine Nitrite Negative (Negative); Urine Protein Negative (Negative); Urine Specific Gravity 1.021 (1.002-1.030); Urine Urobilinogen Negative (Negative)
[2021-03-27 23:59] LABS: Albumin 2.2 g/dL (3.2-5.2); Albumin/Globulin Ratio 0.5 (1-3); Calcium 8.1 mg/dL (8.6-10.3); Globulin 4.4 g/dL (2-4); Potassium 4.4 mmol/L (3.5-5.0); Total Bilirubin 0.5 mg/dL (0.2-1.0); Total Protein 6.6 g/dL (6.4-8.9)
[2021-03-28 00:15] LABS: ABS Basophils 0.2 10^3/ul (0-0.2); ABS Lymphocytes 0.4 10^3/ul (1.0-4.8); ABS Monocytes 0.6 10^3/ul (0-0.8); ABS Neutrophils 11.8 10^3/ul (1.5-7.7); Eosinophil % 0.3 %; Hematocrit 30 % (42-52); Hemoglobin 9.2 g/dL (14.0-18.0); Lymphocyte % 3.2 %; Mean Corpuscular HGB Conc 31 g/dL (31-36); Mean Corpuscular Hemoglobin 22 pg (27-31); Mean Corpuscular Volume 72 fL (80-94); Mean Platelet Volume 8.4 fL (7.4-10.4); Platelet Count 86 10^3/uL (150-450); Red Blood Count 4.15 10^6 /uL (4.18-5.48); Red Cell Distribution Width 23 % (10-15)
[2021-03-28] MEDS: Albumin Human 25% 12.5 GM/50 ML BTL IV SCH (01:50)
[2021-03-28 05:11] LABS: ABS Lymphocytes 0.4 10^3/ul (1.0-4.8); ABS Monocytes 0.6 10^3/ul (0-0.8); ABS Neutrophils 4.2 10^3/ul (1.5-7.7); Eosinophil % 0.8 %; Hematocrit 24 % (42-52); Hemoglobin 7.8 g/dL (14.0-18.0); Lymphocyte % 8.1 %; Mean Corpuscular HGB Conc 32 g/dL (31-36); Mean Corpuscular Hemoglobin 23 pg (27-31); Mean Corpuscular Volume 71 fL (80-94); Mean Platelet Volume 8.1 fL (7.4-10.4); Nucleated Red Blood Cells % 0.1; Platelet Count 90 10^3/uL (150-450); Red Blood Count 3.38 10^6 /uL (4.18-5.48); Red Cell Distribution Width 23 % (10-15); White Blood Count 5.3 10^3/uL (3.5-10.8)
[2021-03-28 05:26] LABS: Calcium 7.7 mg/dL (8.6-10.3); Magnesium 2.2 mg/dL (1.9-2.7); Potassium 4.1 mmol/L (3.5-5.0)
[2021-03-28] MEDS ORDERED: Insulin GLARGINE 100 un/ml 10 ml VIAL SUBCUT SCH (09:00)
[2021-03-28] MEDS: Vancomycin 1000 MG in NS 0.9% 250 ML IVPB SCH ×2 (09:14→16:03)
[2021-03-28] MEDS ORDERED: Iodixanol (CONTRAST) 320 MG/ML 100 ML SDV IV ONE (09:40)
[2021-03-28] MEDS ORDERED: Lactulose 30 ml UDC PO ONE (15:44)
[2021-03-28] MEDS: Cholecalciferol (VIT D3) 1,000 unit TAB PO SCH (22:13)
[2021-03-28] MEDS: Aspirin EC 81 mg TAB.EC (enteric coated) PO SCH (22:13)
[2021-03-28] MEDS: Enoxaparin 40 MG/0.4 ML SYR SUBCUT SCH (22:16)
[2021-03-29] MEDS: Vancomycin 1000 MG in NS 0.9% 250 ML IVPB SCH ×2 (00:42→08:29)
[2021-03-29 06:20] LABS: Albumin 1.9 g/dL (3.2-5.2); Albumin/Globulin Ratio 0.5 (1-3); Calcium 7.6 mg/dL (8.6-10.3); Globulin 3.7 g/dL (2-4); Potassium 4.1 mmol/L (3.5-5.0); Total Bilirubin 0.3 mg/dL (0.2-1.0); Total Protein 5.6 g/dL (6.4-8.9)
[2021-03-29 06:30] LABS: ABS Eosinophils 0.1 10^3/ul (0-0.6); ABS Lymphocytes 0.6 10^3/ul (1.0-4.8); ABS Monocytes 0.7 10^3/ul (0-0.8); ABS Neutrophils 4.1 10^3/ul (1.5-7.7); Eosinophil % 1.8 %; Hematocrit 25 % (42-52); Lymphocyte % 10.2 %; Mean Corpuscular HGB Conc 32 g/dL (31-36); Mean Corpuscular Hemoglobin 23 pg (27-31); Mean Corpuscular Volume 72 fL (80-94); Mean Platelet Volume 8.4 fL (7.4-10.4); Nucleated Red Blood Cells % 0.1; Platelet Count 79 10^3/uL (150-450); Red Blood Count 3.48 10^6 /uL (4.18-5.48); Red Cell Distribution Width 22 % (10-15); White Blood Count 5.5 10^3/uL (3.5-10.8)
[2021-03-29 06:47] LABS: Hepatitis B Surface Antigen Nonreactive (Nonreactive)
[2021-03-29 07:04] LABS: Hepatitis B Surface Ab Not Immune (Immune); Hepatitis C Antibody Negative (Negative)
[2021-03-29] MEDS ORDERED: Vancomycin Trough Check NOTE FOLLOW UP ONE (07:30)
[2021-03-29 07:53] LABS: Vancomycin Trough 18.1 mcg/mL
[2021-03-29] MEDS ORDERED: Furosemide 40 mg/4 ml IV VIAL IV SLOW PU ONE ×2 (09:53→16:00)
[2021-03-29 10:31] LABS: Magnesium 1.6 mg/dL (1.9-2.7)
[2021-03-29] MEDS ORDERED: Magnesium Sulf 4 GM/100 ML IV 4,000 MG/100 ML BAG IVPB ONE (10:52)
[2021-03-29] MEDS ORDERED: Albumin Human 25% 25 GM/100 ML BTL IV ONE (10:55)
[2021-03-29] MEDS: Cholecalciferol (VIT D3) 1,000 unit TAB PO SCH (20:12)
[2021-03-29] MEDS: Aspirin EC 81 mg TAB.EC (enteric coated) PO SCH (20:12)
[2021-03-29] MEDS: Enoxaparin 40 MG/0.4 ML SYR SUBCUT SCH (20:12)
[2021-03-29] MEDS: Vancomycin 1,250 MG in NS 0.9% 250 ml 250 ML IVPB SCH (20:20)
[2021-03-29] MEDS: Insulin GLARGINE 100 un/ml 10 ml VIAL SUBCUT SCH (20:40)
[2021-03-29] MEDS ORDERED: Insulin GLARGINE 100 un/ml 10 ml VIAL SUBCUT SCH (21:00)
[2021-03-30 05:34] LABS: Albumin 1.8 g/dL (3.2-5.2); Albumin/Globulin Ratio 0.5 (1-3); C Reactive Protein 83.04 mg/L (<8.01); Calcium 7.5 mg/dL (8.6-10.3); Direct Bilirubin 0.2 mg/dL (0.03-0.18); Globulin 3.6 g/dL (2-4); HDL Cholesterol 13.7 mg/dL; Indirect Bilirubin 0.1 mg/dL (0.3-1.0); Magnesium 1.8 mg/dL (1.9-2.7); Potassium 3.7 mmol/L (3.5-5.0); Total Bilirubin 0.3 mg/dL (0.2-1.0); Total Protein 5.4 g/dL (6.4-8.9)
[2021-03-30 05:42] LABS: ABS Eosinophils 0.1 10^3/ul (0-0.6); ABS Lymphocytes 0.6 10^3/ul (1.0-4.8); ABS Monocytes 0.6 10^3/ul (0-0.8); ABS Neutrophils 2.7 10^3/ul (1.5-7.7); Eosinophil % 1.9 %; Hematocrit 24 % (42-52); Hemoglobin 7.5 g/dL (14.0-18.0); Lymphocyte % 15.2 %; Mean Corpuscular HGB Conc 32 g/dL (31-36); Mean Corpuscular Hemoglobin 23 pg (27-31); Mean Corpuscular Volume 71 fL (80-94); Mean Platelet Volume 8.3 fL (7.4-10.4); Platelet Count 119 10^3/uL (150-450); Red Blood Count 3.31 10^6 /uL (4.18-5.48); Red Cell Distribution Width 22 % (10-15); White Blood Count 4.1 10^3/uL (3.5-10.8)
[2021-03-30] MEDS ORDERED: Potassium Chlor 20 meq TAB.ER PO ONE (07:29)
[2021-03-30] MEDS ORDERED: Magnesium Sulfate 2 gm BAG 2 GM/50 ML BAG IVPB ONE (07:30)
[2021-03-30] MEDS: Vancomycin 1,250 MG in NS 0.9% 250 ml 250 ML IVPB SCH ×2 (11:00→22:08)
[2021-03-30 11:47] LABS: ActiTest Interpretation no activity; Alanine Aminotransferase (ALT) 33 U/L (7-55); Alpha-2-Macroglobulin, S 124 mg/dL (100 - 280); Apolipoprotein A1, S 49 mg/dL (>=120); Bilirubin, Total, S 0.4 mg/dL (<=1.2); BioPredictive Serial Number 3590970; FibroTest Interpretation minimal fibrosis; Gamma Glutamyltransferase GGT 43 U/L (8 - 61); Haptoglobin, S 231 mg/dL (30 - 200)
[2021-03-30 14:36] LABS: Albumin, BF 0.6 g/dL; Fluid Type, Albumin PLEURAL
[2021-03-30 14:41] LABS: Fluid Type, Protein, Total PERITONEAL; Total Protein, BF 1.4 g/dL
[2021-03-30 14:41] LABS: Fluid Type, Protein, Total PLEURAL; Total Protein, BF 2.5 g/dL
[2021-03-30 15:20] LABS: Albumin, BF 0.3 g/dL; Fluid Type, Albumin PERITONEAL
[2021-03-30] MEDS ORDERED: diPHENhydraMINE IV 50 MG/ML 1 ml VIAL (BENADRYL) IV ONE (15:28)
[2021-03-30 15:55] LABS: Immunoglobulin Subclass IgG4 98.8 mg/dL
[2021-03-30 15:58] LABS: C-ANCA Negative (Negative); P-ANCA Negative (Negative)
[2021-03-30] MEDS: Albumin Human 25% 25 GM/100 ML BTL IV SCH ×2 (17:24→21:41)
[2021-03-30] MEDS: Pantoprazole VIAL 40 MG VIAL IV SCH (21:40)
[2021-03-30] MEDS: Aspirin EC 81 mg TAB.EC (enteric coated) PO SCH (21:42)
[2021-03-30] MEDS: Cholecalciferol (VIT D3) 1,000 unit TAB PO SCH (21:42)
[2021-03-30] MEDS: Insulin GLARGINE 100 un/ml 10 ml VIAL SUBCUT SCH (21:43)
[2021-03-30] MEDS: Enoxaparin 40 MG/0.4 ML SYR SUBCUT SCH (21:43)
[2021-03-31 07:03] LABS: Albumin 2.2 g/dL (3.2-5.2); Albumin/Globulin Ratio 0.7 (1-3); Calcium 7.8 mg/dL (8.6-10.3); Globulin 3.3 g/dL (2-4); Magnesium 1.6 mg/dL (1.9-2.7); Total Bilirubin 0.3 mg/dL (0.2-1.0); Total Protein 5.5 g/dL (6.4-8.9)
[2021-03-31 07:15] LABS: Hematocrit 25 % (42-52); Mean Corpuscular HGB Conc 32 g/dL (31-36); Mean Corpuscular Hemoglobin 23 pg (27-31); Mean Corpuscular Volume 71 fL (80-94); Red Blood Count 3.48 10^6 /uL (4.18-5.48); Red Cell Distribution Width 23 % (10-15)
[2021-03-31] MEDS ORDERED: Perflutren Lipid Microsphere 3 ML VIAL ONE (07:48)
[2021-03-31 07:56] LABS: Platelet Count Platelets clumped. 10^3/uL (150-450)
[2021-03-31] MEDS ORDERED: Vancomycin Trough Check NOTE FOLLOW UP ONE (08:30)
[2021-03-31] MEDS: Pantoprazole VIAL 40 MG VIAL IV SCH ×2 (08:36→21:25)
[2021-03-31 09:20] LABS: Vancomycin Trough 18.4 mcg/mL
[2021-03-31] MEDS: Vancomycin 1,250 MG in NS 0.9% 250 ml 250 ML IVPB SCH (09:26)
[2021-03-31] MEDS ORDERED: diPHENhydraMINE IV 50 MG/ML 1 ml VIAL (BENADRYL) IV ONE (11:31)
[2021-03-31] MEDS ORDERED: Albumin Human 25% 25 GM/100 ML BTL IV ONE (11:40)
[2021-03-31 12:36] LABS: Lactate Dehydrogenase, BF 52 U/L
[2021-03-31 12:56] LABS: Ceruloplasmin 19.8 mg/dL
[2021-03-31 18:13] LABS: Mitochondria M2 Antibody <0.1 U
[2021-03-31] MEDS: Insulin GLARGINE 100 un/ml 10 ml VIAL SUBCUT SCH (21:24)
[2021-03-31] MEDS: Aspirin EC 81 mg TAB.EC (enteric coated) PO SCH (21:26)
[2021-03-31] MEDS: Enoxaparin 40 MG/0.4 ML SYR SUBCUT SCH (21:27)
[2021-03-31] MEDS: Cholecalciferol (VIT D3) 1,000 unit TAB PO SCH (21:27)
[2021-03-31] MEDS: Vancomycin 1000 MG in NS 0.9% 250 ML IVPB SCH (23:16)
[2021-04-01] MEDS: Pantoprazole VIAL 40 MG VIAL IV SCH ×2 (09:29→21:01)
[2021-04-01] MEDS ORDERED: diPHENhydraMINE IV 50 MG/ML 1 ml VIAL (BENADRYL) IV ONE (10:00)
[2021-04-01] MEDS ORDERED: Albumin Human 25% 25 GM/100 ML BTL IV ONE (10:30)
[2021-04-01 10:35] LABS: Alpha 1 Antitrypsin A1A 254 mg/dL (100 - 190)
[2021-04-01] MEDS: Vancomycin 1000 MG in NS 0.9% 250 ML IVPB SCH (11:15)
[2021-04-01] MEDS ORDERED: fentaNYL 100 mcg/2 ml 50 MCG/ML VIAL ONE (15:03)
[2021-04-01] MEDS: Cholecalciferol (VIT D3) 1,000 unit TAB PO SCH (20:58)
[2021-04-01] MEDS: Aspirin EC 81 mg TAB.EC (enteric coated) PO SCH (20:58)
[2021-04-01] MEDS: Enoxaparin 40 MG/0.4 ML SYR SUBCUT SCH (21:00)
[2021-04-01] MEDS: Insulin GLARGINE 100 un/ml 10 ml VIAL SUBCUT SCH (21:00)
[2021-04-02 06:22] LABS: Albumin 2.4 g/dL (3.2-5.2); Albumin/Globulin Ratio 0.8 (1-3); Calcium 7.9 mg/dL (8.6-10.3); Globulin 3.2 g/dL (2-4); Magnesium 1.5 mg/dL (1.9-2.7); Potassium 4.1 mmol/L (3.5-5.0); Total Bilirubin 0.3 mg/dL (0.2-1.0); Total Protein 5.6 g/dL (6.4-8.9)
[2021-04-02 06:25] LABS: INR 1.37 (0.86-1.15)
[2021-04-02 06:26] LABS: Hematocrit 25 % (42-52); Hemoglobin 7.9 g/dL (14.0-18.0); Mean Corpuscular HGB Conc 32 g/dL (31-36); Mean Corpuscular Hemoglobin 23 pg (27-31); Mean Corpuscular Volume 72 fL (80-94); Red Blood Count 3.41 10^6 /uL (4.18-5.48); Red Cell Distribution Width 22 % (10-15); White Blood Count 4.2 10^3/uL (3.5-10.8)
[2021-04-02] MEDS ORDERED: Magnesium Sulfate IV 3 GM in NS 0.9% 100 ml BAG 100 ML IVPB ONE (08:00)
[2021-04-02 08:17] LABS: Platelet Count Platelets clumped. 10^3/uL (150-450)
[2021-04-02] MEDS: Pantoprazole VIAL 40 MG VIAL IV SCH ×2 (08:52→22:20)
[2021-04-02] MEDS ORDERED: Vancomycin Trough Check NOTE FOLLOW UP ONE (10:30)
[2021-04-02] MEDS ORDERED: Albumin Human 25% 25 GM/100 ML BTL IV ONE (10:59)
[2021-04-02] MEDS ORDERED: diPHENhydraMINE IV 50 MG/ML 1 ml VIAL (BENADRYL) IV ONE (11:01)
[2021-04-02] MEDS ORDERED: Naloxone 0.4 mg VIAL 0.4 mg/ml 1 ml VIAL ONE (14:18)
[2021-04-02] MEDS ORDERED: Flumazenil 0.5 mg/5 ml 0.1 MG/ML 5 ml VIAL ONE (14:18)
[2021-04-02] MEDS ORDERED: fentaNYL 100 mcg/2 ml 50 MCG/ML VIAL ONE (14:18)
[2021-04-02] MEDS ORDERED: Midazolam 5 mg/5 ml VIAL 1 mg/ml 5 ml VIAL (5 mg) ONE (14:18)
[2021-04-02] MEDS: Aspirin EC 81 mg TAB.EC (enteric coated) PO SCH (22:19)
[2021-04-02] MEDS: Cholecalciferol (VIT D3) 1,000 unit TAB PO SCH (22:19)
[2021-04-02] MEDS: Enoxaparin 40 MG/0.4 ML SYR SUBCUT SCH (22:19)
[2021-04-02] MEDS: Insulin GLARGINE 100 un/ml 10 ml VIAL SUBCUT SCH (22:35)
[2021-04-03 07:34] LABS: Calcium 7.8 mg/dL (8.6-10.3); Magnesium 1.7 mg/dL (1.9-2.7); Potassium 4.3 mmol/L (3.5-5.0)
[2021-04-03 08:12] LABS: Hematocrit 25 % (42-52); Mean Corpuscular HGB Conc 32 g/dL (31-36); Mean Corpuscular Hemoglobin 23 pg (27-31); Mean Corpuscular Volume 72 fL (80-94); Mean Platelet Volume 8.7 fL (7.4-10.4); Platelet Count 147 10^3/uL (150-450); Red Blood Count 3.46 10^6 /uL (4.18-5.48); Red Cell Distribution Width 23 % (10-15); White Blood Count 4.8 10^3/uL (3.5-10.8)
[2021-04-03] MEDS ORDERED: Magnesium Sulfate 2 gm BAG 2 GM/50 ML BAG IVPB ONE (08:50)
[2021-04-03] MEDS: Pantoprazole VIAL 40 MG VIAL IV SCH ×2 (10:29→21:52)
[2021-04-03] MEDS ORDERED: Magnesium Hydroxide LIQ 30 ML UDC PO ONE (18:19)
[2021-04-03] MEDS: Aspirin EC 81 mg TAB.EC (enteric coated) PO SCH (21:52)
[2021-04-03] MEDS: Cholecalciferol (VIT D3) 1,000 unit TAB PO SCH (21:52)
[2021-04-03] MEDS: Enoxaparin 40 MG/0.4 ML SYR SUBCUT SCH (21:52)
[2021-04-03] MEDS: Insulin GLARGINE 100 un/ml 10 ml VIAL SUBCUT SCH (21:53)
[2021-04-04] MEDS: Pantoprazole VIAL 40 MG VIAL IV SCH (10:08)
[2021-04-04 11:39] VITALS: BP 102/58
== END 2021-04-04 13:53 | disposition home health service (06) | DRG 871 ==
LOC: ED 23:51 → EDHOLD 23:51 → SUATTDRO 03-27 05:24 → EDHOLD 03-27 12:04 → MED 03-27 12:47 → SUATTDRO 03-28 11:00 → MEDTELE 03-29 01:48
PROVIDERS: ADMIT Internal Medicine; ATTEND Internal Medicine

== ENCOUNTER 2022-07-14 13:57 | Inpatient (IN) ==
[2022-07-14 17:47] LABS: Hematocrit 35 % (42-52); Hemoglobin 10.9 g/dL (14.0-18.0); Mean Corpuscular HGB Conc 31 g/dL (31-36); Mean Corpuscular Hemoglobin 26 pg (27-31); Mean Corpuscular Volume 83 fL (80-94); Mean Platelet Volume 8.3 fL (7.4-10.4); Platelet Count 343 10^3/uL (150-450); Red Blood Count 4.21 10^6 /uL (4.18-5.48); Red Cell Distribution Width 19 % (10-15); White Blood Count 21.7 10^3/uL (3.5-10.8)
[2022-07-14 18:04] LABS: Activated Partial Thrombo Time 28.6 seconds (26.0-38.0); INR 1.44 (0.88-1.18)
[2022-07-14 18:07] LABS: Urine Appearance Clear; Urine Bilirubin Negative (Negative); Urine Blood Negative (Negative); Urine Color Yellow; Urine Glucose 1+(50 mg/dL) (Negative); Urine Ketones Negative (Negative); Urine Nitrite Negative (Negative); Urine Protein 1+(30 mg/dL) (Negative); Urine Specific Gravity 1.012 (1.002-1.030); Urine Urobilinogen Negative (Negative)
[2022-07-14 18:13] LABS: Urine Bacteria Absent (Absent); Urine Red Blood Cell Trace(0-2/hpf) (Absent); Urine Squamous Epithelial Cell Present (Absent); Urine White Blood Cell Trace(0-5/hpf) (Absent)
[2022-07-14 18:24] LABS: Albumin 2.1 g/dL (3.2-5.2); Albumin/Globulin Ratio 0.6 (1-3); C Reactive Protein 189.78 mg/L (<8.01); Calcium 8.2 mg/dL (8.6-10.3); Creatinine, Serum 0.69 mg/dL (0.67-1.17); Globulin 3.8 g/dL (2-4); Potassium 4.3 mmol/L (3.5-5.0); Total Bilirubin 0.6 mg/dL (0.2-1.0); Total Protein 5.9 g/dL (6.4-8.9); eGFR CKD-EPI 95.3 (>60)
[2022-07-14 19:06] LABS: ABS Eosinophils 0.1 10^3/ul (0-0.6); ABS Lymphocytes 0.3 10^3/ul (1.0-4.8); ABS Monocytes 1.3 10^3/ul (0-0.8); Eosinophil % 0.4 %; Large Platelets Present; Lymphocyte % 1.4 %
[2022-07-14] MEDS ORDERED: Iodixanol (CONTRAST) 320 MG/ML 100 ML SDV IV ONE (19:24)
[2022-07-14] MEDS ORDERED: Piperacillin/Tazobac ADVAN 3.375 GM in NS 0.9% 100 ml BAG 100 ML IV ONE (20:19)
[2022-07-14] MEDS ORDERED: Vancomycin 1,250 MG in NS 0.9% 250 ml 250 ML IVPB ONE (21:00)
[2022-07-14] MEDS ORDERED: Lactated Ringers 1000 ml BAG 1,000 ML IV ONE (23:24)
[2022-07-15] MEDS ORDERED: Remdesivir 100 mg Vial 200 MG in NS 0.9% 250 ml 210 ML IV ONE (00:08)
[2022-07-15] MEDS ORDERED: ZOSYN 3.375 GM Q8H per EXTENDED INFUSION IV SCH (01:00)
[2022-07-15] MEDS ORDERED: Zosyn per Pharmacy NOTE FOLLOW UP SCH (01:00)
[2022-07-15] MEDS ORDERED: Vancomycin per Pharmacy 1 EA NOTE FOLLOW UP SCH (01:00)
[2022-07-15] MEDS ORDERED: Dextrose 50% Syringe 50 ml 25 GM/50 ML SYRINGE IV PUSH PRN (01:14)
[2022-07-15] MEDS ORDERED: Lactated Ringers 1000 ml BAG 1,000 ML IV SCH (02:00)
[2022-07-15] MEDS ORDERED: metroNIDAZOLE IV 500 MG/100ML 500 MG/100 ML BAG IVPB SCH ×2 (03:00→05:00)
[2022-07-15] MEDS ORDERED: Cefepime 2 GM in Dextrose 2 GM/50 ML BAG IV SCH (03:00)
[2022-07-15 06:29] LABS: ABS Lymphocytes 0.2 10^3/ul (1.0-4.8); ABS Monocytes 0.9 10^3/ul (0-0.8); ABS Neutrophils 13.1 10^3/ul (1.5-7.7); Eosinophil % 0.1 %; Hematocrit 29 % (42-52); Hemoglobin 9.3 g/dL (14.0-18.0); Lymphocyte % 1.4 %; Mean Corpuscular HGB Conc 32 g/dL (31-36); Mean Corpuscular Hemoglobin 26 pg (27-31); Mean Corpuscular Volume 82 fL (80-94); Mean Platelet Volume 8.4 fL (7.4-10.4); Platelet Count 222 10^3/uL (150-450); Red Blood Count 3.53 10^6 /uL (4.18-5.48); Red Cell Distribution Width 19 % (10-15); White Blood Count 14.3 10^3/uL (3.5-10.8)
[2022-07-15 06:46] LABS: Albumin 1.7 g/dL (3.2-5.2); Albumin/Globulin Ratio 0.6 (1-3); C Reactive Protein 195.67 mg/L (<8.01); Calcium 7.5 mg/dL (8.6-10.3); Creatinine, Serum 0.71 mg/dL (0.67-1.17); Globulin 2.7 g/dL (2-4); Potassium 3.8 mmol/L (3.5-5.0); Total Bilirubin 0.4 mg/dL (0.2-1.0); Total Protein 4.4 g/dL (6.4-8.9); eGFR CKD-EPI 94.5 (>60)
[2022-07-15 06:52] LABS: INR 1.62 (0.88-1.18)
[2022-07-15 07:00] LABS: Magnesium 1.5 mg/dL (1.9-2.7)
[2022-07-15 07:16] LABS: TSH Ultra Thyroid Stim Horm 1.6 mcIU/mL (0.34-5.60)
[2022-07-15] MEDS: Vancomycin 1000 MG in NS 0.9% 250 ML IVPB SCH ×2 (10:10→21:06)
[2022-07-15] MEDS: Insulin GLARGINE 100 un/ml 10 ml VIAL SUBCUT SCH (10:11)
[2022-07-15] MEDS ORDERED: Magnesium Sulf 4 GM/100 ML IV 4,000 MG/100 ML BAG IVPB ONE (10:48)
[2022-07-15] MEDS ORDERED: fentaNYL 100 mcg/2 ml 50 MCG/ML VIAL ONE (10:54)
[2022-07-15] MEDS ORDERED: Meropenem 2 GM in NS 0.9% 100 ml BAG 100 ML IVPB SCH (11:00)
[2022-07-15] MEDS: Pancrelipase 5,000 units CAP PO SCH (13:17)
[2022-07-15] MEDS: Meropenem 2 GM in NS 0.9% 100 ml BAG 100 ML IVPB SCH (20:01)
[2022-07-15] MEDS: Aspirin EC 81 mg TAB.EC (enteric coated) PO SCH (20:58)
[2022-07-15] MEDS: Remdesivir 100 mg Vial 100 MG in NS 0.9% 250 ml 230 ML IV SCH (23:11)
[2022-07-16] MEDS: Meropenem 2 GM in NS 0.9% 100 ml BAG 100 ML IVPB SCH ×3 (02:55→20:25)
[2022-07-16] MEDS ORDERED: Vancomycin Trough Check NOTE FOLLOW UP ONE (08:30)
[2022-07-16] MEDS: Pancrelipase 5,000 units CAP PO SCH (08:40)
[2022-07-16] MEDS: Enoxaparin 40 MG/0.4 ML SYR SUBCUT SCH (08:40)
[2022-07-16 08:43] LABS: ABS Lymphocytes 0.5 10^3/ul (1.0-4.8); ABS Monocytes 0.6 10^3/ul (0-0.8); ABS Neutrophils 6.2 10^3/ul (1.5-7.7); Eosinophil % 0.6 %; Hematocrit 32 % (42-52); Hemoglobin 10.2 g/dL (14.0-18.0); Lymphocyte % 6.1 %; Mean Corpuscular HGB Conc 32 g/dL (31-36); Mean Corpuscular Hemoglobin 26 pg (27-31); Mean Corpuscular Volume 82 fL (80-94); Mean Platelet Volume 8.2 fL (7.4-10.4); Platelet Count 257 10^3/uL (150-450); Red Cell Distribution Width 18 % (10-15); White Blood Count 7.4 10^3/uL (3.5-10.8)
[2022-07-16 08:48] LABS: INR 1.47 (0.88-1.18)
[2022-07-16 09:11] LABS: Creatinine, Serum 0.64 mg/dL (0.67-1.17); Vancomycin Trough 25.3 mcg/mL; eGFR CKD-EPI 97.5 (>60)
[2022-07-16 09:13] LABS: Albumin 1.7 g/dL (3.2-5.2); Albumin/Globulin Ratio 0.6 (1-3); Calcium 7.4 mg/dL (8.6-10.3); Creatinine, Serum 0.64 mg/dL (0.67-1.17); Globulin 2.7 g/dL (2-4); Magnesium 1.9 mg/dL (1.9-2.7); Potassium 3.6 mmol/L (3.5-5.0); Total Bilirubin 0.2 mg/dL (0.2-1.0); Total Protein 4.4 g/dL (6.4-8.9); eGFR CKD-EPI 97.5 (>60)
[2022-07-16] MEDS ORDERED: Potassium Chlor 20 meq TAB.ER PO ONE (09:25)
[2022-07-16] MEDS: Vancomycin 1000 MG in NS 0.9% 250 ML IVPB SCH (10:34)
[2022-07-16] MEDS: Insulin GLARGINE 100 un/ml 10 ml VIAL SUBCUT SCH (10:45)
[2022-07-16] MEDS ORDERED: Magnesium Sulfate IV 1GM/100ML 1 GM/100 ML BAG IV ONE (15:38)
[2022-07-16] MEDS: Aspirin EC 81 mg TAB.EC (enteric coated) PO SCH (20:31)
[2022-07-16] MEDS: Remdesivir 100 mg Vial 100 MG in NS 0.9% 250 ml 230 ML IV SCH (21:51)
[2022-07-17] MEDS: Meropenem 2 GM in NS 0.9% 100 ml BAG 100 ML IVPB SCH ×3 (03:46→20:58)
[2022-07-17] MEDS ORDERED: Vancomycin Trough Check NOTE FOLLOW UP ONE (06:00)
[2022-07-17 07:07] LABS: ABS Eosinophils 0.1 10^3/ul (0-0.6); ABS Lymphocytes 0.2 10^3/ul (1.0-4.8); ABS Monocytes 0.7 10^3/ul (0-0.8); Eosinophil % 0.6 %; Hematocrit 32 % (42-52); Hemoglobin 10.3 g/dL (14.0-18.0); Lymphocyte % 2.5 %; Mean Corpuscular HGB Conc 32 g/dL (31-36); Mean Corpuscular Hemoglobin 27 pg (27-31); Mean Corpuscular Volume 82 fL (80-94); Mean Platelet Volume 8.4 fL (7.4-10.4); Platelet Count 298 10^3/uL (150-450); Red Blood Count 3.87 10^6 /uL (4.18-5.48); Red Cell Distribution Width 18 % (10-15)
[2022-07-17 07:11] LABS: INR 1.42 (0.88-1.18)
[2022-07-17 07:53] LABS: Calcium 7.5 mg/dL (8.6-10.3); Creatinine, Serum 0.67 mg/dL (0.67-1.17); Magnesium 1.8 mg/dL (1.9-2.7); Potassium 4.3 mmol/L (3.5-5.0); eGFR CKD-EPI 96.2 (>60)
[2022-07-17] MEDS ORDERED: Magnesium Sulfate 2 gm BAG 2 GM/50 ML BAG IVPB ONE (07:57)
[2022-07-17] MEDS: Enoxaparin 40 MG/0.4 ML SYR SUBCUT SCH (10:55)
[2022-07-17] MEDS: Pancrelipase 5,000 units CAP PO SCH (10:56)
[2022-07-17] MEDS: Insulin GLARGINE 100 un/ml 10 ml VIAL SUBCUT SCH (10:57)
[2022-07-17] MEDS: Vancomycin 1,250 MG in NS 0.9% 250 ml 250 ML IVPB SCH (14:23)
[2022-07-17] MEDS: Aspirin EC 81 mg TAB.EC (enteric coated) PO SCH (21:08)
[2022-07-18] MEDS: Meropenem 2 GM in NS 0.9% 100 ml BAG 100 ML IVPB SCH ×3 (04:17→20:28)
[2022-07-18 09:47] LABS: ABS Eosinophils 0.1 10^3/ul (0-0.6); ABS Lymphocytes 0.3 10^3/ul (1.0-4.8); ABS Monocytes 0.6 10^3/ul (0-0.8); ABS Neutrophils 5.4 10^3/ul (1.5-7.7); Eosinophil % 1.8 %; Hematocrit 33 % (42-52); Hemoglobin 10.4 g/dL (14.0-18.0); Mean Corpuscular HGB Conc 32 g/dL (31-36); Mean Corpuscular Hemoglobin 26 pg (27-31); Mean Corpuscular Volume 81 fL (80-94); Mean Platelet Volume 8.5 fL (7.4-10.4); Platelet Count 286 10^3/uL (150-450); Red Blood Count 4.04 10^6 /uL (4.18-5.48); Red Cell Distribution Width 18 % (10-15); White Blood Count 6.5 10^3/uL (3.5-10.8)
[2022-07-18 10:00] LABS: Albumin 1.8 g/dL (3.2-5.2); Albumin/Globulin Ratio 0.6 (1-3); Calcium 7.4 mg/dL (8.6-10.3); Creatinine, Serum 0.61 mg/dL (0.67-1.17); Globulin 2.9 g/dL (2-4); Magnesium 1.9 mg/dL (1.9-2.7); Potassium 4.1 mmol/L (3.5-5.0); Total Bilirubin 0.3 mg/dL (0.2-1.0); Total Protein 4.7 g/dL (6.4-8.9); eGFR CKD-EPI 98.9 (>60)
[2022-07-18] MEDS: Insulin GLARGINE 100 un/ml 10 ml VIAL SUBCUT SCH (10:45)
[2022-07-18] MEDS: Pancrelipase 5,000 units CAP PO SCH (10:45)
[2022-07-18] MEDS: Enoxaparin 40 MG/0.4 ML SYR SUBCUT SCH (10:46)
[2022-07-18] MEDS: Vancomycin 1,250 MG in NS 0.9% 250 ml 250 ML IVPB SCH (14:20)
[2022-07-18] MEDS ORDERED: Magnesium Sulfate IV 1GM/100ML 1 GM/100 ML BAG IV ONE (14:34)
[2022-07-18] MEDS: Aspirin EC 81 mg TAB.EC (enteric coated) PO SCH (20:27)
[2022-07-19] MEDS: Meropenem 2 GM in NS 0.9% 100 ml BAG 100 ML IVPB SCH ×3 (03:23→22:05)
[2022-07-19 06:56] LABS: ABS Eosinophils 0.2 10^3/ul (0-0.6); ABS Lymphocytes 0.4 10^3/ul (1.0-4.8); ABS Monocytes 0.8 10^3/ul (0-0.8); ABS Neutrophils 5.2 10^3/ul (1.5-7.7); Eosinophil % 2.6 %; Hematocrit 31 % (42-52); Hemoglobin 10.3 g/dL (14.0-18.0); Lymphocyte % 6.5 %; Mean Corpuscular HGB Conc 33 g/dL (31-36); Mean Corpuscular Hemoglobin 27 pg (27-31); Mean Corpuscular Volume 82 fL (80-94); Mean Platelet Volume 8.3 fL (7.4-10.4); Platelet Count 282 10^3/uL (150-450); Red Blood Count 3.83 10^6 /uL (4.18-5.48); Red Cell Distribution Width 19 % (10-15); White Blood Count 6.6 10^3/uL (3.5-10.8)
[2022-07-19 07:13] LABS: Blood Urea Nitrogen 13 mg/dL (6-24); CO2 Carbon Dioxide 28 mmol/L (22-32); Calcium 7.3 mg/dL (8.6-10.3); Chloride 100 mmol/L (101-111); Creatinine, Serum 0.61 mg/dL (0.67-1.17); Glucose 79 mg/dL (70-100); Magnesium 1.9 mg/dL (1.9-2.7); Potassium 4.4 mmol/L (3.5-5.0); Sodium 128 mmol/L (135-145); eGFR CKD-EPI 98.9 (>60)
[2022-07-19] MEDS: Pancrelipase 5,000 units CAP PO SCH (09:09)
[2022-07-19] MEDS: Enoxaparin 40 MG/0.4 ML SYR SUBCUT SCH (09:10)
[2022-07-19] MEDS: Insulin GLARGINE 100 un/ml 10 ml VIAL SUBCUT SCH (09:10)
[2022-07-19 09:18] LABS: C Reactive Protein 58.22 mg/L (<8.01)
[2022-07-19] MEDS ORDERED: Vancomycin Trough Check NOTE FOLLOW UP ONE (13:30)
[2022-07-19] MEDS: Aspirin EC 81 mg TAB.EC (enteric coated) PO SCH (22:05)
[2022-07-20] MEDS: Meropenem 2 GM in NS 0.9% 100 ml BAG 100 ML IVPB SCH (05:40)
[2022-07-20] MEDS: Pancrelipase 5,000 units CAP PO SCH (08:53)
[2022-07-20] MEDS: Enoxaparin 40 MG/0.4 ML SYR SUBCUT SCH (08:53)
[2022-07-20] MEDS: Insulin GLARGINE 100 un/ml 10 ml VIAL SUBCUT SCH (08:54)
[2022-07-20 09:02] VITALS: BP 114/59
== END 2022-07-20 10:52 | disposition home or self-care (01) | DRG 871 ==
LOC: ED 13:57 → SUATTDRO 22:17 → EDHOLD 22:17 → MEDTELE 07-15 03:15
PROVIDERS: ADMIT Internal Medicine; ATTEND Internal Medicine